=== PATIENT | male | born 1960 | race African-American/Black ===

== ENCOUNTER 2018-05-02 11:12 | Inpatient (IN) | payer MEDICARE, OTHER ==
[~2018-05-02] VITALS: Ht 180.3 cm; Wt 145.5 kg
--- NOTE | ~2018-05-02 | OP ---
PATIENT NAME: SHARATH YOUNG MEDICAL RECORD: [id number] :62 LOCATION:D.M2 D.2117 ADMISSION DATE:05/02/18 SURGEON: JUSTYN PROCTOR MD DATE OF OPERATION: 05/03/2018 PROCEDURE: Patient underwent left heart catheterization, LV gram and coronary angiogram. INDICATIONS: Unstable angina. PROCEDURE IN DETAIL: The patient was brought to cardiac catheterization lab in stable condition. Both groins were sterilely prepped and draped. Patient had a 6-Maltese sheath placed into the right radial artery using modified Seldinger technique. We then were able to selectively engage the left coronary artery, the right coronary artery, and the left ventricular cavity respectively for selective complete left heart catheterization. FINDINGS: 1. Left main is a short vessel with mild plaquing. 2. The LAD has diffuse atherosclerotic changes with a 60% to 70% proximal and a 70% to 80% mid stenosis and a large vessel. First diagonal has a stent. The stent has about a 50% to 60% in-stent restenosis. 3. The right coronary artery is a large, dominant vessel with very serpiginous arteries and a mid 90% stenosis. The posterolateral vessel is a small vessel with a mid 80% stenosis. HEMODYNAMICS: Left ventricular ejection fraction is 65%. There is mild elevations end-diastolic pressure at 25-30 mmHg. There is no significant mitral regurgitation. There is no gradient across the aortic valve. IMPRESSION: Multivessel coronary artery disease in a diabetic patient with preserved LV systolic function. RECOMMENDATIONS: I would consider a consultation for coronary artery bypass grafting versus stenting of the RCA and possibly stenting of the LAD. TRANSINT:[id number] Voice Confirmation ID: [id number] DOCUMENT ID: [id number] JUSTYN PROCTOR MD at 0743 CC: [id number] DICTATION DATE: 05/03/18 1308 MARINE ARCHITECT: 05/03/18 1550 ADM IN [place] [id number] [place] [address]
--- NOTE | ~2018-05-02 | TEE ---
PATIENT:SHARATH YOUNG MEDICAL RECORD: [id number] LOCATION:[place] [address] AGE OF PATIENT: 57 ADMISSION DATE: 05/04/18 SEX: M REFERRING PHYSICIAN: INTERPRETING PHYSICIAN: REYNALDO NOVAK MD TRANSESOPHAGEAL ECHOCARDIOGRAM Date: 05/05/18 ANTONIO CHARGE Y INDICATIONS: CABG PREMEDICATIONS: PATIENT'S RESPONSE PROCEDURE DOPPLER MEASUREMENTS: LVIT LA PA 80.0 RA LVOT 106 RVOT 60.0 Asc. Ao 128 AV Gradient Peak 6.6 AV Mean 3.2 AV Area 2.5 MV Gradient Peak 4.6 MV Mean 1.3 MV Area INTERPRETATION: Doppler: 2-D: COLOR FLOW DOPPLER NORMAL SALINE STUDY: MISCELLANOUS: DIAGNOSIS: PLAN: Joiner:Loli Uribe Earrings Fabricator: Conrado BROWN COMMENTS: DATE OF SERVICE: 05/06/2018 PROCEDURE: Transesophageal echo evaluation of valvular structures during bypass surgery. FINDINGS: 1. Left ventricular chamber size is within normal limits. Left ventricular systolic function is normal. Overall ejection fraction estimated at 60%. 2. Left atrium, right atrium, and right ventricle chamber sizes are within TRANSESOPHAGEAL ECHOCARDIOGRAM REPORT [id number] AJAY YOUNG normal limits. 3. Valvular structures have normal structure and motion. 4. Doppler interrogation reveals mild tricuspid regurgitation, mild mitral regurgitation, no other valvular insufficiency or stenosis. 5. No evidence of pericardial effusion or left ventricular thrombus. TRANSINT:[id number] Voice Confirmation ID: [id number] DOCUMENT ID: [id number] at 1713 CC: [id number] DICTATION DATE: 05/06/18 1157 WOOD PREPARATION SUPERVISOR: 05/06/18 1202 [place] [address]
--- NOTE | ~2018-05-02 | ST ---
PATIENT:SHARATH YOUNG MEDICAL RECORD: [id number] SEX: M LOCATION:D. D.211 ORDER #: ADMISSION DATE: 05/02/18 AGE OF PATIENT: 57 REFERRING PHYSICIAN: INTERPRETING PHYSICIAN: JUSTYN PROCTOR MD DATE OF SERVICE: 05/03/2018 The patient underwent a Lexiscan stress test. He had imaging at rest and stress done on the same day with 11.2 mCi sestamibi injected at rest and 29.8 mCi sestamibi injected at stress. The patient had no difficulty through the Lexiscan portion and we had reasonable imaging. He had no chest pain or shortness of breath. Gated imaging showed an ejection fraction of 45% to 50%. Overall reasonable wall motion throughout all segments. SPECT imaging showed no evidence of significant ischemia. There was an inferior attenuation artifact, likely liver attenuation artifact, although area of ischemic changes cannot be definitively ruled out because of the attenuation artifact. There does not appear to be a wall motion artifact to correspond to this, so unlikely they are ischemic changes. IMPRESSION: The patient has no significant areas of ischemia. He has inferior attenuation artifact. Ejection fraction is low normal. Depending on clinical situation and risk factor adjustment, symptom-directed therapies are very reasonable versus possible. Going further with angiography depending on clinical scenario. TRANSINT:[id number] Voice Confirmation ID: [id number] DOCUMENT ID: [id number] JUSTYN PROCTOR MD at 0743 CC: [id number] DICTATION DATE: 05/03/18 1111 DRAFTER DETAIL: 05/03/18 1902 ADM IN [place] [id number] [place] [address]
--- NOTE | ~2018-05-02 | EC ---
PATIENT:SHARATH YOUNG DATE OF SERVICE: 05/02/18 SEX: M MEDICAL RECORD: [id number] DATE OF : 62 LOCATION:D.M2 D.211 AGE OF PATIENT: 57 ADMISSION DATE: 05/04/18 REFERRING PHYSICIAN: INTERPRETING PHYSICIAN: JUSTYN PROCTOR MD ECHOCARDIOGRAM REPORT ECHO CHARGES 4 ECHO COMPLETE Date: 05/03 CLINICAL DIAGNOSIS: CP ECHOCARDIOGRAPHIC MEASUREMENTS (adult normal given) AC root (d.<3.7cm) 3.4 cm LV Septum d (<1.2 cm> 1.6 cm Valve Excursion 2.4 cm LV Septum (systole) 2.2 cm Left Atria (s.<4.0cm> 3.0 cm LVPW d(<1.2cm) 1.5 cm RV (d.<2.3cm) 2.7 cm LVPW (sytole) 2.5 cm LV diastole(<5.6CM) 6.3 cm MV E-F(>70mm/sec) cm LV systole 4.2 cm LVOT Diameter 2.2 cm MV exc.(>10mm) cm Est.ejection fraction (50-75%) % DOPPLER: LVIT cm/sec A 82.0 cm/sec E 61.0 cm/sec LA cm/sec RVSP 20.1 mmHg LVOT 106 cm/sec AOP1/2T m/s Asc. Ao 128 cm/sec RVOT 60.0 cm/sec RA cm/sec PA 80.0 cm/sec AV Gradient Peak 6.6 mmHg AV Mean 3.2 mmHg AV Area 2.5 cm MV Gradient Peak 4.6 mmHg MV Mean 1.3 mmHg MV Area cm COMMENTS: Gin Feeder: Jason DYEOE 911 Telecommunicator: 4 Dr. Proctor TAPE# PACS Pericardial Effusion N DATE OF SERVICE: PROCEDURE: Transthoracic echocardiogram. FINDINGS: 1. Left ventricle shows evidence of moderate to severe concentric left ventricular hypertrophy. Inflow characteristics consistent with diastolic dysfunction. Ejection fraction is 55%. There is mild enlargement of the left ventricular end-diastolic diameter. 2. The left atrium is normal. ECHOCARDIOGRAM REPORT [id number] SHARATH YOUNG 3. The aortic valve is normal. 4. The mitral valve is normal. 5. The tricuspid valve is normal. 6. The pericardium is normal. 7. The right ventricle is normal. 8. The right atrium is normal. CONCLUSION: The patient has evidence of hypertensive heart disease, otherwise normal echocardiogram. TRANSINT:[id number] Voice Confirmation ID: [id number] DOCUMENT ID: [id number] JUSTYN PROCTOR MD at 1702 CC: [id number] DICTATION DATE: 05/04/18 0757 RUBBER GOODS ASSEMBLER: 05/04/18 1203 ADM IN [place] [address] [place] [address]
--- NOTE | ~2018-05-02 | MORECARE ---
CASE MANAGEMENT DISCHARGE SUMMARY PATIENT: GOVIND YOUNG UNIT: [id number] ADM DATE: 05/04/18 AGE: 57 : 62 SEX: M ROOM/BED: [facility] AUTHOR: CASE, GARNETT FEEDER PHYSICIAN: REFERRING PHYSICIAN: JUSTYN PROCTOR MD DATE OF SERVICE: 05/04/18 Discharge Plan Patient Name: GOVIND YOUNG [facility] [facility] 1960 Planned Disposition: Home Anticipated Discharge Date: Discharge Date: Expected LOS: Initial Reviewer: [email or web address] Initial Review Date: 05/07/2018 Generated: 05/07/18 10:16 am Coverage Notice Reviewer: [email or web address] Kike Garcia Notice Issued Date-Time: 05/02/2018 19:44 Notice Type: Medicare Outpatient Observation Notice Notice Delivered To: Patient Relationship to Patient: Self Platen Press Operator Apprentice Name: Govind Young Delivery Method: - Jordyn Days: Prior Verbal Notification: Recipient Understood Notice: Recipient Signature: Med Rec Note Co-signed by Attending: Coverage Notice Comment: Patient Name: GOVIND YOUNG Page [id number] All edits/amendments must be made on the electronic document DICTATION DATE: 05/07/18915 CIVIL RIGHTS INVESTIGATOR: 05/07/18915 RPT#: [id number] DC DATE: STATUS: ADM IN [facility] [address] [place] [address] END OF REPORT
--- NOTE | ~2018-05-02 | OP ---
PATIENT NAME: SHARATH STONE MEDICAL RECORD: [id number] :62 LOCATION:[facility] D.CV07 ADMISSION DATE:05/04/18 SURGEON: ZACHARY AVALOS MD DATE OF OPERATION: 05/05/2018 SURGEON: Zachary Avalos MD ANESTHESIA: General endotracheal, Dr. Mcpherson. OPERATION PERFORMED: Coronary artery bypass. 1. Left internal thoracic, left anterior descending. 2. Reverse saphenous vein graft to the first diagonal coronary artery. 3. Reverse saphenous vein graft to the right coronary artery. PREOPERATIVE DIAGNOSES: Unstable angina and intermediate coronary syndrome. POSTOPERATIVE DIAGNOSES: Unstable angina and intermediate coronary syndrome. INDICATION FOR OPERATION: Unstable angina. FINDINGS OF THE OPERATION: The left internal thoracic and greater saphenous vein from the right thigh were good for conduits. The target vessels were of good caliber and quality. ESTIMATED BLOOD LOSS: Cell Saver was used. DESCRIPTION OF PROCEDURE: After informed consent and adequate preoperative medication and evaluation, the patient was brought to the operating room, placed on the table in the supine position. After induction of general endotracheal anesthesia and application of appropriate monitoring devices, chest, neck, abdomen, and both legs were prepped and draped in sterile field. Utilizing Betadine scrub, alcohol, and Betadine solution, Betadine-impregnated drape was also used. Saphenous vein was harvested from right thigh and lower leg and prepared for reverse saphenous vein grafting. Leg was closed over drains utilizing 3-0 Vicryl and skin donita. A median sternotomy incision was used and dissection carried down to the fascia. Hemostasis was maintained with electrocautery. Sternum was divided. Innominate vein was identified and protected. The left internal thoracic was taken down and prepared for grafting. The patient was given a calculated dose of heparin, cannulated in standard fashion utilizing one aortic and one 2-stage cannula in the atrium and inferior vena cava. The patient was placed on cardiopulmonary bypass, cooled to 32 degrees centigrade. A cross clamp was placed just proximal to the aortic cannula. The patient was given cardioplegic solution through the aortic root. The patient was given a cold induction and cold maintenance. The patient was given cold intermittent cardioplegic solution throughout the procedure through the root, the grafts or a combination of both. The first vessel to be grafted was the right coronary artery, it was grafted end-to-side utilizing a running 7-0 Prolene suture. Graft was measured back to the aorta and a proximal anastomosis fashioned utilizing running 6-0 Prolene suture. Next, first diagonal was grafted end-to-side utilizing a running 7-0 Prolene suture. Graft was measured back to the aorta and a proximal anastomosis fashioned utilizing running 6-0 Prolene suture. Next, left internal thoracic was brought up to the hole in pericardium, sutured to left anterior descending end-to-side utilizing a running 8-0 Prolene suture. Pedicle was attached to epicardium with 6-0 Prolene suture. All maneuvers to remove trapped air were performed. The patient was OPERATIVE REPORT [id number] SHARATH STONE given warm cardioplegic reperfusion and controlled reperfusion. The patient was rewarmed to 37 degrees centigrade. Two atrial and 2 ventricular pacing wires were placed in the heart and brought out through the epigastric area. The patient was weaned from cardiopulmonary bypass. After being stable off bypass, he was given calculated dose of protamine to reverse the heparin. Hemostasis was achieved. A #40 right angle and #36 chest tubes were brought in through the epigastric area and placed in mediastinum. A separate left pleural Victorino tube was connected to a suction bulb. The chest was again irrigated. Instrument count and sponge count were correct times 2. Chest closed in layers utilizing #7 wire on the sternum, #2 Vicryl on linea alba and pectoralis fascia. Subcutaneous tissue was approximated with 3-0 Vicryl and skin approximated with 3-0 subcuticular Vicryl. Sterile dressings were applied. The patient tolerated the procedure well and transferred to cardiovascular recovery in stable condition. TRANSINT:[id number] Voice Confirmation ID: [id number] DOCUMENT ID: [id number] ZACHARY AVALOS MD at 1235 CC: [id number] DICTATION DATE: 05/05/18 1453 CRUSHER TENDER: 05/05/18 1525 DIS IN 05/14/[address] [address]
--- NOTE | ~2018-05-02 | HEMODYNAMI ---
PATIENT:SHARATH YOUNG MEDICAL RECORD: [id number] : 62 [facility] DATE: 05/02/18 Generatedon:05/03/201813:15 Patient name: SHARATH YOUNG Patient #: [id number] SSN: D OB: 1960 Date of study: 05/03/2018 Page: Of Hemodynamic Procedure Report Patient Data Patient Demographics Procedure consent was obtained First Name: SHARATH Gender: Male Last Name: HANNAH : 1960 Patient #: [id number] Age: 57 year(s) Race: Black Additional ID: [id number] Contact details [address]: [address] [place] [address] State: [place] City: [place] Zip code: [address] Past Medical History Allergies Allergen Reaction Date Comments Reported Other allergy 05/03/2018 codeine Admission Admission Data Admission Date: 05/02/2018 Admission Time: 13:19 Room #: 2117 Procedure Procedure Types Cath Procedure Diagnostic Procedure LHC LH w/Coronaries Sedation Charges Moderate Sedation up to 15 minutes Procedure Description Procedure Date Procedure Date: 05/03/2018 Procedure Start Time: 12:46 Procedure End Time: 13:15 Procedure Staff Name Function Fabián Proctor MD Performing Physician Ilda Peacock RT Monitor Rk Draper RN Nurse Yoandy Childs RT Scrub Procedure Data Cath Procedure Fluoroscopy Diagnostic fluoroscopy Total fluoroscopy Time: 3.9 time: 3.9 min min Diagnostic fluoroscopy Total fluoroscopy dose: dose: 1410 mGy 1410 mGy Contrast Material Contrast Material Type Amount (ml) Isovue 370 70 Entry Location Entry Primary Successful Side Size Upsize Upsize Entry Closure Barnes ccessful Closure Location (Fr) 1 (Fr) 2 (Fr) Remarks Device Remarks Radial Right 6 Fr Mechanical artery Short Compression Estimated blood loss: 5 ml Diagnostic catheters Device Type Used For End Catheter Placement DIAGNOSTIC Munir 110cm Left Coronary 5Fr catheter ([id number]) Angiography DIAGNOSTIC Munir 110cm LV Angiography 5Fr catheter ([id number]) DIAGNOSTIC Munir 110cm Right Coronary 5Fr catheter ([id number]) Angiography Procedure Complications No complications Procedure Medications Medication Administration Route Dosage Oxygen etCO2 Nasal cannula 2 l/min Lidocaine 2% added to field 20 Heparin Flush Bag added to field 2 bags (1000units/500ml NS) 0.9% NaCl I.V. 100 ml/hr Radial Cocktail I.A. 1 syringe (Verapomil 2mg/Nitro 400mcg/Heparin 1500units) Versed I.V. 1 mg Fentanyl I.V. 50 mcg Versed I.V. 1 mg Fentanyl I.V. 50 mcg Lopressor I.V. 5 mg unlisted medication 1 Hemodynamics Rest Heart Rate: 67 (bpm) Pressure Samples Time Site Value (mmHg) Purpose Heart Use Rate(bpm) 12:55 LV 166/27,28 EDP 69 12:57 LV 184/18,28 EDP 66 12:57 LV 184/21,37 Snapshot 56 12:58 AO 174/110(139) Snapshot 70 Gradients Valve Time Site Site Mean SEP/DFP Peak To Heart Use 1 2 (mmHg) (sec/min) Peak Rate (mmHg) (bpm) Aortic 12:57 LV AO 74 Snapshots Pre Cath Intra NCS Post Cath Vital Signs Time Heart Resp SPO2 etCO2 NIBP (mmHg) Rhythm Pain Sedation Rate (ipm) (%) (mmHg) Status Level (bpm) 12:39:06 69 19 100 34.5 Measuring NSR 0 (11) 10(A) , No pain 12:41:11 67 17 97 36 Time NSR 0 (11) 10(A) Exceeded , No pain 12:45:04 66 16 96 34.6 No Cuff NSR 0 (11) 10(A) , No pain 12:48:00 61 14 99 34.5 191/106(160) NSR 0 (11) 10(A) , No pain 12:52:55 69 15 95 37.6 171/101(130) NSR 0 (11) 9(A) , No pain 12:58:35 67 16 97 36.8 176/100(146) NSR 0 (11) 10(A) , No pain 13:03:32 66 14 100 36 187/103(157) NSR 0 (11) 10(A) , No pain 13:08:31 62 17 100 34.5 198/107(162) NSR 0 (11) 10(A) , No pain 13:13:30 62 13 0 Measuring NSR 0 (11) 10(A) , No pain 13:13:37 62 12 0 201/107(147) NSR 0 (11) 10(A) , No pain Medications Time Medication Route Dose Verified Delivered Reason Notes Effectiveness by by 12:38:19 Oxygen etCO2 2 l/min Fabián Buffie used for Nasal Rony Draper RN procedure cannula 12:38:26 Lidocaine 2% added 20ml Fabián Fabián for local to vial Rony Proctor MD anesthetic field 12:38:33 Heparin Flush added 2 bags Fabián Fabián used for Bag to Rony Proctor MD procedure (1000units/500ml field FERGUSON NS) 12:38:41 0.9% NaCl I.V. 100 Fabián Buffie Per ml/hr Rony Draper RN physician MD 12:44:39 Versed I.V. 1 mg Fabián Buffie for sedation Rony Draper RN, MD 12:44:45 Fentanyl I.V. 50 mcg Fabián Buffie for sedation Rony Draper RN, MD 12:48:44 Radial Cocktail I.A. 1 Fabián Fabián for (Verapomil syringe Rony Proctor MD vasodilation 2mg/Nitro MD 400mcg/Heparin 1500units) 12:49:17 Versed I.V. 1 mg Fabián Buffie for sedation Rony Draper RN, MD 12:49:21 Fentanyl I.V. 50 mcg Fabián Buffie for sedation Rony Draper RN, MD 13:06:07 Lopressor I.V. 5 mg Fabián Buffie for Rony Draper RN hypertension 13:10:31 Nitroglycerin dermal 1 inch Fabián Buffie for ointment Rony Draper RN hypertension Procedure Log Time Note 12:18:50 Time tracking: Call back (After hours or weekends) 12:18:59 Plan of Care:Hemodynamics will remain stable., Cardiac rhythm will remain stable., Comfort level will be maintained., Respiratory function will remain adequate., Patient/ family verbilizes understanding of procedure., Procedure tolerated without complication., Recovers from procedure without complications.. 12:19:05 Ilda Counts RT(R) sent for patient. Start room use. 12:28:42 Patient received from Med II to CCL 1 Alert and oriented. Tansferred to table in Supine position. 12:28:43 Warm blankets applied, and jimi hugger turned on for patient comfort. 12::44 Correct patient and procedure confirmed by team. 12::45 Signed procedure consent form obtained from patient. 12::46 ECG and BP/O2 sat monitors applied to patient. 12::47 Pre-procedure instructions explained to patient. 12::47 Pre-op teaching completed and patient verbalized understanding. 12:28:49 Family in patients room. 12::51 Patient NPO since Breakfast. 12:29:03 Patient allergic to Other allergycodeine 12:37:57 Vital chart was started 12:38:02 Rhythm: sinus rhythm 12:38:03 Full Disclosure recording started 12:38:07 H&P Date Dictated: 05/03/2018 Within 30 days and on chart.. 12:38:16 Is the patient allergic to Iodine/contrast media? No. 12:38:17 Is patient on blood thinner?Yes 12:38:19 Oxygen 2 l/min etCO2 Nasal cannula was administered by Rk Draper RN; used for procedure; 12:38:19 ACC The patient was administered the following blood thiners within the last 24 hours: ACCPlavix 12:38:21 Patient diabetic? Yes. 12:38:22 If diabetic: On Metformin? Yes 12:38:26 Lidocaine 2% 20ml vial added to field was administered by Fabián Proctor MD; for local anesthetic; 12:38:26 If on Metformin: Last Dose? 05/01/2018 12:38:30 Previous problem with sedation/anesthesia? No ? 12:38:33 Heparin Flush Bag (1000units/500ml NS) 2 bags added to field was administered by Fabián Proctor MD; used for procedure; 12:38:33 Snore? Yes 12:38:33 Sleep apnea? Yes 12:38:35 Deviated septum? No 12:38:36 Opens mouth fully? Yes 12:38:36 Sticks out tongue? Yes 12:38:39 Airway obstruction? No ? 12:38:41 0.9% NaCl 100 ml/hr I.V. was administered by Rk Draper RN; Per physician; 12:38:41 Dentures? Yes OUT 12:38:45 Pre procedure: right dorsailis pedis pulse 2+ Normal; easily identifiable; not easily obliterated 12:38:58 Modified Carlos's test Ulnar < 7 seconds 12:39:06 Patient pain scale 0/10 ?. 12:39:33 IV patent on arrival in left hand with 0.9% NaCl at [facility]. 12:39:52 Lab results completed and on chart. 12:40:08 Right Radial & Right Groin area was prepped with chlora-prep and draped in sterile fashion 12:40:09 Alarms reviewed by R. N. 12:40:09 Sharps counted by scrub and verified by R.N. 12:40:14 Use device set Radial Dx or PCI 12:40:15 ACIST Syringe (69226) opened to sterile field. 12:40:15 Medline Cath Pack ([id number]) opened to sterile field. 12:40:16 Bag Decanter (2002S) opened to sterile field. 12:40:17 DIAGNOSTIC WIRE .035 260cm J wire (553170) opened to sterile field. 12:40:17 ACIST Hand Control (18309) opened to sterile field. 12:40:18 ACIST Manifold (91101) opened to sterile field. 12:40:18 Tegaderm 4 x 4 (1626W) opened to sterile field. 12:40:19 MBrace Wrist Support ([id number]) opened to sterile field. 12:40:21 SHEATH 6Fr Prelude Radial ([id number]) opened to sterile field. 12:41:33 Final Timeout: patient, procedure, and site verified with staff and physician. All members of the team are in agreement. 12:41:37 Right Radial site verified by team. 12:41:40 Physical assessment completed. ASA score P 2 - A patient with mild systemic disease as per Fabián Proctor MD. 12:41:44 Sedation plan: IV Moderate Sedation Medication:Versed, Fentanyl 12:43:22 Baseline sample Acquired. 12:44:39 Versed 1 mg I.V. was administered by Rk Draper RN; for sedation; 12:44:45 Fentanyl 50 mcg I.V. was administered by Rk Draper RN; for sedation; 12:45:15 Procedure started. 12:46:25 Local anesthetic to right radial artery with Lidocaine 2% by Fabián Proctor MD.INITIAL ACCESS ONLY 12:47:44 A 6 Fr Short sheath was inserted into the Right Radial artery 12:48:14 Zero performed for pressure channel P1 12:48:44 Radial Cocktail (Verapomil 2mg/Nitro 400mcg/Heparin 1500units) 1 syringe I.A. was administered by Fabián Proctor MD; for vasodilation; 12:48:54 A DIAGNOSTIC Munir 110cm 5Fr catheter (230316) was advanced over the wire and used for Left Coronary Angiography. 12:49:17 Versed 1 mg I.V. was administered by Rk Draper RN; for sedation; 12:49:21 Fentanyl 50 mcg I.V. was administered by Rk Draper RN; for sedation; 12:55:23 A DIAGNOSTIC Munir 110cm 5Fr catheter (166545) was advanced over the wire and used for LV Angiography. 12:56:43 GLIDE WIRE ANGLE 260cm (FY6135) opened to sterile field. 12:56:49 glide wire advanced. 12:57:34 LV gram done using DIANA 12:57:36 LV hemodynamics recorded. 12:57:38 Injector settings: Ml/sec: 12, Volume: 8, 12:58:01 EF : 60 % 12:58:34 A DIAGNOSTIC Munir 110cm 5Fr catheter (799862) was advanced over the wire and used for Right Coronary Angiography. 13:00:42 Catheter removed. 13:00:58 Sheath removed intact; hemostasis achieved with Mechanical Compression to the Right Radial artery. 13:01:08 Procedure ended.(Physican Out) 13:01:21 Fluoroscopy time 03.90 minutes. 13:01:26 Fluoroscopy dose: 1410 mGy 13:01:26 Flurop Dose total: 1410 13:01:32 Contrast amount:Isovue 370 70ml. 13:02:44 Sharps counted by scrub and verified by R.N. 13:02:47 Insertion/operative site no bleeding no hematoma. 13:02:53 TR band inflated with 12cc of air. 13:03:05 Post right radial artery:stable, clean and dry 13:03:07 Post Procedure Pulses reassessed and unchanged 13:03:10 Post-procedure physical assessment completed. ASA score P 2 - A patient with mild systemic disease as per Fabián Proctor MD. 13:03:13 Post procedure rhythm: unchanged. 13:03:21 Estimated blood loss: 5 ml 13:03:22 Post procedure instruction explained to patient.Patient verbalizes understanding. 13:03:23 Patient needs reinforcement of post procedure teaching. 13:04:24 Procedure type changed to Cath procedure, Diagnostic procedure, LHC, LHC w/Coronaries, Sedation Charges, Moderate Sedation up to 15 minutes 13:04:30 Procedure Complication : No complications 13:04:32 See physician's report for complete and final results. 13:04:41 TR BAND Large ([id number]) opened to sterile field. 13:06:[address] SPOKE TO DR JESSICA FOR CABG CONSULT. 13:06:07 Lopressor 5 mg I.V. was administered by Rk Draper RN; for hypertension; 13:06:16 Procedure and supply charges have been captured, reviewed, submitted and are correct. 13:10:31 Nitroglycerin ointment 1 inch dermal was administered by Rk Draper RN; for hypertension; 13:15:18 Vital chart was stopped 13:15:23 Report given to PCU. 13:15:27 Patient transfered to PCU with Bed. 13:15:34 Procedure ended. 13:15:34 Full Disclosure recording stopped 13:15:40 End room use (Document Last) Device Usage Item Name Manufacture Quantity Catalog Number Hospital Part Current M inimal Lot# / Charge Number Stock Stock Serial# Code ACIST Syringe Acist 1 85124 137706 322011 851329 2 0 (21745) [employer] Medline Cath Cardinal 1 [id number] 595736 38360 475844 5 [facility] ([id number]) Bag Decanter Microtek 1 983255 36904 768817 5 () [employer] Inc. DIAGNOSTIC WIRE St Calvin 1 062697 639866 454249 727117 3 0 .035 260cm J wire (291279) ACIST Hand Acist 1 99993 804458 098601 849691 5 Control (37364) [employer] Inc ACIST Manifold Acist 1 60141 990873 557830 882076 5 (78698) [employer] Inc Tegaderm 4 x 4 3M 1 1626W 250186 784996 760015 5 (1626W) MBrace Wrist Advanced 1 140-0250-00 931155 38759 199133 5 Support Vascular ([id number]) Dynamics SHEATH 6Fr Merit 1 [id number] 260155 861930 864030 5 Prelude Radial Medical ([id number]) DIAGNOSTIC Terumo 1 40-6828 330856 487067 901909 5 Munir 110cm 5Fr catheter (706617) GLIDE WIRE Terumo 1 OP2733 809331 351851 237327 5 ANGLE 260cm (CM8292) TR BAND Large Terumo 1 [id number] 555434 139255 049305 4 0 ([id number]) Signature Audit [employer] Time Signature Unsigned Intra-Procedure 05/03/2018 Ilda 1:15:52 PM Counts RT(R) Signatures Monitor : Ilda Signature : Counts RT Date : Time : [address] [address]
[2018-05-02] MEDS ORDERED: HYDROCHLOROTHIA25 MG PO (11:24)
[2018-05-02] MEDS ORDERED: GLUCOPHAGE1000 MG PO (11:24)
[2018-05-02] MEDS ORDERED: ZOCOR40 MG PO (11:24)
[2018-05-02] MEDS ORDERED: NIFEDIPINE ER90 MG PO (11:25)
[2018-05-02] MEDS ORDERED: LOPRESSOR25 MG PO (11:26)
[2018-05-02] MEDS ORDERED: COZAAR100 MG PO (11:26)
[2018-05-02] MEDS ORDERED: CATAPRES0.1 MG PO (11:26)
[2018-05-02] MEDS ORDERED: NAPROSYN500 MG PO (11:26)
[2018-05-02 11:31] VITALS: BP 205/102
[2018-05-02 11:58] LABS: BASOPHILS 0.2 % (0-2); EOSINOPHILS 1.1 % (0-7); HEMATOCRIT 42.9 % (42.0-54.0); HEMOGLOBIN 14.2 g/dL (13.5-17.5); IMMATURE GRANULOCYTES 0.2 % (0-5); LYMPHOCYTES 24.7 % (15-50); MCH 27.2 pg (26.0-34.0); MCHC 33.1 g/dL (31.0-37.0); MONOCYTES 3.3 % (2-11); NEUTROPHILS 70.5 % (40-80); PLATELET COUNT 209 10x3/uL (130-400); RBC 5.23 10x6/uL (4.20-6.10); RDW 14.3 % (11.5-14.5); WBC 4.5 10x3/uL (4.8-10.8)
[2018-05-02 12:01] VITALS: BP 193/94
[2018-05-02 12:13] LABS: ALBUMIN 3.6 g/dL (3.4-5.0); ALKALINE PHOSPHATASE 68 U/L (46-116); ALT (SGPT) 26 U/L (10-68); BILIRUBIN - TOTAL 0.45 mg/dL (0.2-1.3); CALC OSMOLALITY 280 mosm/kg (275-300); CALCIUM 8.5 mg/dL (8.5-10.1); CARBON DIOXIDE 20.8 mmol/L (21.0-32.0); CHLORIDE - SERUM 99 mmol/L (98-107); CREATININE - SERUM 1.7 mg/dL (0.6-1.3); GLUCOSE 290 mg/dL (74-106); POTASSIUM - SERUM 4.1 mmol/L (3.5-5.1); PROTEIN - SERUM 7.9 g/dL (6.4-8.2); SODIUM 133 mmol/L (136-145); UREA NITROGEN 25 mg/dL (7-18); eGFR NON AFRICAN AMERICAN 44 mL/min (90-120)
[2018-05-02 12:24] LABS: CKMB 6.5 U/L (0.0-3.6); PRO BNP 239 pg/mL (0-125); TROPONIN-I 0.028 ng/mL (0.000-0.060)
[2018-05-02 12:25] LABS: CREATINE KINASE 895 UL (21-232)
[2018-05-02 12:45] VITALS: BP 134/77
[2018-05-02 15:11] VITALS: BP 144/89; BMI 43.3
[2018-05-02 18:51] LABS: CKMB 5.1 U/L (0.0-3.6)
[2018-05-02 19:07] LABS: CREATINE KINASE 615 UL (21-232); TROPONIN-I < 0.017 ng/mL (0.000-0.060)
[2018-05-02 20:00] VITALS: BP 146/77
[2018-05-03 01:54] LABS: CKMB 4.4 U/L (0.0-3.6); CREATINE KINASE 541 UL (21-232); TROPONIN-I < 0.017 ng/mL (0.000-0.060)
[2018-05-03 04:00] VITALS: BP 162/74
[2018-05-03 08:05] VITALS: BP 141/73
[2018-05-03 12:08] LABS: BASOPHILS 0.1 % (0-2); EOSINOPHILS 0.6 % (0-7); HEMATOCRIT 38.3 % (42.0-54.0); HEMOGLOBIN 12.9 g/dL (13.5-17.5); IMMATURE GRANULOCYTES 0.1 % (0-5); LYMPHOCYTES 34.1 % (15-50); MCHC 33.7 g/dL (31.0-37.0); MCV 80.3 fL (80.0-100.0); MEAN PLATELET VOLUME 9.6 fL (7.4-10.4); MONOCYTES 9.9 % (2-11); NEUTROPHILS 55.2 % (40-80); PLATELET COUNT 245 10x3/uL (130-400); RBC 4.77 10x6/uL (4.20-6.10); RDW 14.2 % (11.5-14.5); WBC 6.9 10x3/uL (4.8-10.8)
[2018-05-03 12:15] LABS: ANION GAP 9.6 mmol/L (8-16); CALCIUM 8.5 mg/dL (8.5-10.1); CREATININE - SERUM 1.8 mg/dL (0.6-1.3); POTASSIUM - SERUM 3.8 mmol/L (3.5-5.1)
[2018-05-03 12:19] LABS: CARBON DIOXIDE 29.2 mmol/L (21.0-32.0)
[2018-05-03 15:14] VITALS: BP 154/101
[2018-05-03 20:30] VITALS: BP 128/85
[2018-05-04] VITALS (7 sets, daily range): BP systolic 122–197; BP diastolic 63–115
[2018-05-04 12:15] LABS: BASOPHILS 0.1 % (0-2); EOSINOPHILS 2.2 % (0-7); HEMATOCRIT 36.7 % (42.0-54.0); HEMOGLOBIN 12.1 g/dL (13.5-17.5); IMMATURE GRANULOCYTES 0.1 % (0-5); LYMPHOCYTES 29.8 % (15-50); MCH 26.5 pg (26.0-34.0); MCV 80.5 fL (80.0-100.0); MEAN PLATELET VOLUME 9.9 fL (7.4-10.4); MONOCYTES 6.7 % (2-11); NEUTROPHILS 61.1 % (40-80); PLATELET COUNT 238 10x3/uL (130-400); RBC 4.56 10x6/uL (4.20-6.10); RDW 14.3 % (11.5-14.5); WBC 7.4 10x3/uL (4.8-10.8)
[2018-05-04 12:45] LABS: ALBUMIN 3.1 g/dL (3.4-5.0); ANION GAP 8.1 mmol/L (8-16); BILIRUBIN - TOTAL 0.3 mg/dL (0.2-1.3); CALCIUM 8.7 mg/dL (8.5-10.1); CARBON DIOXIDE 27.5 mmol/L (21.0-32.0); CREATININE - SERUM 1.7 mg/dL (0.6-1.3); PHOSPHOROUS 3.7 mg/dL (2.5-4.9); POTASSIUM - SERUM 3.6 mmol/L (3.5-5.1); T4 THYROXIN - FREE 1.14 ng/dL (0.76-1.46); THYROID STIMULATING HORMONE 2.92 uIU/mL (0.36-3.74); URIC ACID 6.5 mg/dL (2.6-7.2)
[2018-05-04 12:57] LABS: PROTIME 12.1 SECONDS (11.6-15.0)
[2018-05-04 12:58] LABS: APTT 26.1 SECONDS (22.8-39.4); INR 0.95 (0.85-1.17)
[2018-05-04 15:24] LABS: APPEARANCE CLEAR (CLEAR); BACTERIA FEW /hpf (NONE SEEN); BILIRUBIN NEGATIVE (NEGATIVE); COLOR STRAW (YELLOW); EPITHELIAL CELLS 0-5 /hpf (0-5); GLUCOSE 1000 mg/dL (NEGATIVE); KETONE NEGATIVE (NEGATIVE); NITRITE NEGATIVE (NEGATIVE); PROTEIN 2+ mg/dL (NEGATIVE); RED CELLS - URINE 0-5 /hpf (0-5); UROBILINOGEN NORMAL (NORMAL); WHITE CELLS - URINE 0-5 /hpf (0-5)
[2018-05-05] VITALS (37 sets, daily range): BP systolic 100–140; BP diastolic 51–76; BMI 44.0
[2018-05-05 08:15] LABS: PLT FUNCT.(P2Y12) PLAVIX 264 PRU (194-418)
[2018-05-05 14:30] LABS: HEMATOCRIT 30.4 % (42.0-54.0); HEMOGLOBIN 10.3 g/dL (13.5-17.5); MCH 27.1 pg (26.0-34.0); MCHC 33.9 g/dL (31.0-37.0); MEAN PLATELET VOLUME 9.7 fL (7.4-10.4); RBC 3.8 10x6/uL (4.20-6.10); RDW 14.4 % (11.5-14.5)
[2018-05-05 14:39] LABS: ANION GAP 9.7 mmol/L (8-16); CALCIUM 7.6 mg/dL (8.5-10.1); CARBON DIOXIDE 25.7 mmol/L (21.0-32.0); CREATININE - SERUM 1.6 mg/dL (0.6-1.3); POTASSIUM - SERUM 3.4 mmol/L (3.5-5.1)
[2018-05-05 14:51] LABS: APTT 35.7 SECONDS (22.8-39.4); INR 1.24 (0.85-1.17); PROTIME 15.1 SECONDS (11.6-15.0)
[2018-05-06] VITALS (55 sets, daily range): BP systolic 93–134; BP diastolic 42–78
[2018-05-06 05:38] LABS: HEMATOCRIT 29.5 % (42.0-54.0); HEMOGLOBIN 9.8 g/dL (13.5-17.5); MCH 26.8 pg (26.0-34.0); MCHC 33.2 g/dL (31.0-37.0); MCV 80.6 fL (80.0-100.0); MEAN PLATELET VOLUME 9.7 fL (7.4-10.4); RBC 3.66 10x6/uL (4.20-6.10); RDW 14.9 % (11.5-14.5)
[2018-05-06 05:54] LABS: ALBUMIN 2.4 g/dL (3.4-5.0); BILIRUBIN - TOTAL 0.36 mg/dL (0.2-1.3); CALCIUM 7.5 mg/dL (8.5-10.1); CARBON DIOXIDE 24.9 mmol/L (21.0-32.0); PROTEIN - SERUM 5.4 g/dL (6.4-8.2)
[2018-05-06 06:01] LABS: ANION GAP 11.8 mmol/L (8-16); CREATININE - SERUM 2.1 mg/dL (0.6-1.3); POTASSIUM - SERUM 4.7 mmol/L (3.5-5.1)
[2018-05-06 13:21] LABS: HEPATITIS C ANTIBODY 0.2 (0.0-0.9)
[2018-05-07] VITALS (26 sets, daily range): BP systolic 108–147; BP diastolic 54–78; Ht 180.3 cm; Wt 145.5 kg
[2018-05-07 06:12] LABS: HEMATOCRIT 25.4 % (42.0-54.0); HEMOGLOBIN 8.3 g/dL (13.5-17.5); MCH 26.8 pg (26.0-34.0); MCHC 32.7 g/dL (31.0-37.0); MCV 81.9 fL (80.0-100.0); RBC 3.1 10x6/uL (4.20-6.10); RDW 15.3 % (11.5-14.5); WBC 11.4 10x3/uL (4.8-10.8)
[2018-05-07 06:57] LABS: ALBUMIN 2.1 g/dL (3.4-5.0); ANION GAP 12.1 mmol/L (8-16); BILIRUBIN - TOTAL 0.38 mg/dL (0.2-1.3); CALCIUM 7.3 mg/dL (8.5-10.1); CARBON DIOXIDE 25.7 mmol/L (21.0-32.0); POTASSIUM - SERUM 4.8 mmol/L (3.5-5.1); PROTEIN - SERUM 5.8 g/dL (6.4-8.2)
[2018-05-07 07:09] LABS: CREATININE - SERUM 3.6 mg/dL (0.6-1.3)
[2018-05-07 19:51] LABS: APPEARANCE CLEAR (CLEAR); BILIRUBIN NEGATIVE (NEGATIVE); COLOR YELLOW (YELLOW); GLUCOSE 100 mg/dL (NEGATIVE); KETONE NEGATIVE (NEGATIVE); NITRITE NEGATIVE (NEGATIVE); PROTEIN 2+ mg/dL (NEGATIVE); SPECIFIC GRAVITY 1.025 (1.005-1.020); UROBILINOGEN NORMAL (NORMAL)
[2018-05-07 19:53] LABS: BACTERIA MANY /hpf (NONE SEEN); EPITHELIAL CELLS 0-5 /hpf (0-5); RED CELLS - URINE 0-5 /hpf (0-5); WHITE CELLS - URINE 0-5 /hpf (0-5)
[2018-05-08] VITALS (24 sets, daily range): BP systolic 120–165; BP diastolic 64–84
[2018-05-08 05:27] LABS: HEMATOCRIT 21.9 % (42.0-54.0); MCH 26.6 pg (26.0-34.0); MCHC 32.9 g/dL (31.0-37.0); MCV 80.8 fL (80.0-100.0); MEAN PLATELET VOLUME 9.9 fL (7.4-10.4); RBC 2.71 10x6/uL (4.20-6.10); RDW 15.1 % (11.5-14.5); WBC 10.2 10x3/uL (4.8-10.8)
[2018-05-08 05:28] LABS: HEMOGLOBIN 7.2 g/dL (13.5-17.5)
[2018-05-08 05:38] LABS: BILIRUBIN - TOTAL 0.29 mg/dL (0.2-1.3); CALCIUM 7.2 mg/dL (8.5-10.1); CARBON DIOXIDE 26.3 mmol/L (21.0-32.0); CREATININE - SERUM 3.5 mg/dL (0.6-1.3); PROTEIN - SERUM 5.9 g/dL (6.4-8.2)
[2018-05-08 05:43] LABS: ANION GAP 12.7 mmol/L (8-16)
[2018-05-09] VITALS (24 sets, daily range): BP systolic 116–156; BP diastolic 47–80
[2018-05-09 06:00] LABS: MCH 27.1 pg (26.0-34.0); MCV 82.1 fL (80.0-100.0); MEAN PLATELET VOLUME 9.5 fL (7.4-10.4); RDW 14.9 % (11.5-14.5); WBC 10.1 10x3/uL (4.8-10.8)
[2018-05-09 06:09] LABS: HEMOGLOBIN 8.9 g/dL (13.5-17.5); RBC 3.29 10x6/uL (4.20-6.10)
[2018-05-09 06:32] LABS: ANION GAP 12.6 mmol/L (8-16); BILIRUBIN - TOTAL 0.42 mg/dL (0.2-1.3); CALCIUM 7.5 mg/dL (8.5-10.1); CARBON DIOXIDE 26.5 mmol/L (21.0-32.0); POTASSIUM - SERUM 4.1 mmol/L (3.5-5.1); PROTEIN - SERUM 6.2 g/dL (6.4-8.2)
[2018-05-09 06:36] LABS: CREATININE - SERUM 2.4 mg/dL (0.6-1.3)
[2018-05-10] VITALS (24 sets, daily range): BP systolic 117–155; BP diastolic 67–83
[2018-05-10 05:35] LABS: HEMATOCRIT 27.7 % (42.0-54.0); HEMOGLOBIN 9.1 g/dL (13.5-17.5); MCHC 32.9 g/dL (31.0-37.0); MCV 82.2 fL (80.0-100.0); MEAN PLATELET VOLUME 9.6 fL (7.4-10.4); RBC 3.37 10x6/uL (4.20-6.10); RDW 14.7 % (11.5-14.5)
[2018-05-10 05:56] LABS: ANION GAP 10.7 mmol/L (8-16); BILIRUBIN - TOTAL 0.39 mg/dL (0.2-1.3); CALCIUM 7.6 mg/dL (8.5-10.1); CARBON DIOXIDE 26.3 mmol/L (21.0-32.0); CREATININE - SERUM 2.2 mg/dL (0.6-1.3); PROTEIN - SERUM 6.4 g/dL (6.4-8.2)
[2018-05-11] VITALS (26 sets, daily range): BP systolic 121–168; BP diastolic 65–91
[2018-05-11 06:45] LABS: ANION GAP 13.1 mmol/L (8-16); BILIRUBIN - TOTAL 0.48 mg/dL (0.2-1.3); CALCIUM 7.9 mg/dL (8.5-10.1); CARBON DIOXIDE 24.5 mmol/L (21.0-32.0); CREATININE - SERUM 1.8 mg/dL (0.6-1.3); POTASSIUM - SERUM 4.6 mmol/L (3.5-5.1); PROTEIN - SERUM 6.3 g/dL (6.4-8.2)
[2018-05-11 07:09] LABS: HEMATOCRIT 28.1 % (42.0-54.0); HEMOGLOBIN 9.2 g/dL (13.5-17.5); MCH 27.2 pg (26.0-34.0); MCHC 32.7 g/dL (31.0-37.0); MCV 83.1 fL (80.0-100.0); MEAN PLATELET VOLUME 9.9 fL (7.4-10.4); RBC 3.38 10x6/uL (4.20-6.10); WBC 11.1 10x3/uL (4.8-10.8)
[2018-05-12] VITALS (24 sets, daily range): BP systolic 120–154; BP diastolic 68–83
[2018-05-12 06:20] LABS: HEMATOCRIT 24.5 % (42.0-54.0); HEMOGLOBIN 8.1 g/dL (13.5-17.5); MCH 27.6 pg (26.0-34.0); MCHC 33.1 g/dL (31.0-37.0); MCV 83.3 fL (80.0-100.0); MEAN PLATELET VOLUME 9.5 fL (7.4-10.4); RBC 2.94 10x6/uL (4.20-6.10); WBC 10.8 10x3/uL (4.8-10.8)
[2018-05-12 06:44] LABS: ALBUMIN 1.9 g/dL (3.4-5.0); BILIRUBIN - TOTAL 0.38 mg/dL (0.2-1.3); CALCIUM 7.5 mg/dL (8.5-10.1); CARBON DIOXIDE 26.4 mmol/L (21.0-32.0); CREATININE - SERUM 1.7 mg/dL (0.6-1.3); POTASSIUM - SERUM 4.4 mmol/L (3.5-5.1)
[2018-05-13] VITALS (23 sets, daily range): BP systolic 117–161; BP diastolic 56–81
[2018-05-13 10:04] LABS: ANION GAP 14.8 mmol/L (8-16); CALCIUM 8.3 mg/dL (8.5-10.1); CARBON DIOXIDE 23.6 mmol/L (21.0-32.0); CREATININE - SERUM 2.1 mg/dL (0.6-1.3); POTASSIUM - SERUM 5.4 mmol/L (3.5-5.1)
[2018-05-13 10:10] LABS: HEMOGLOBIN 9.7 g/dL (13.5-17.5); MCH 27.6 pg (26.0-34.0); MCHC 32.8 g/dL (31.0-37.0); MCV 84.1 fL (80.0-100.0); MEAN PLATELET VOLUME 9.4 fL (7.4-10.4); RBC 3.52 10x6/uL (4.20-6.10); RDW 15.2 % (11.5-14.5); WBC 11.4 10x3/uL (4.8-10.8)
[2018-05-13 10:13] LABS: HEMATOCRIT 29.6 % (42.0-54.0)
[2018-05-14] VITALS (13 sets, daily range): BP systolic 108–159; BP diastolic 61–82
[2018-05-14 06:21] LABS: HEMOGLOBIN 9.2 g/dL (13.5-17.5); MCH 27.6 pg (26.0-34.0); MCHC 32.9 g/dL (31.0-37.0); MCV 84.1 fL (80.0-100.0); MEAN PLATELET VOLUME 9.2 fL (7.4-10.4); RBC 3.33 10x6/uL (4.20-6.10); RDW 15.1 % (11.5-14.5); WBC 10.5 10x3/uL (4.8-10.8)
[2018-05-14 06:44] LABS: ANION GAP 13.4 mmol/L (8-16); CARBON DIOXIDE 25.9 mmol/L (21.0-32.0); POTASSIUM - SERUM 5.3 mmol/L (3.5-5.1)
[2018-05-14] MEDS ORDERED: HEMOCYTE PLUS C1 CAP PO (13:09)
[2018-05-14] MEDS ORDERED: CORDARONE200 MG PO (13:10)
[2018-05-14] MEDS ORDERED: ASPIRIN81 MG PO (13:12)
[2018-05-14] MEDS ORDERED: LASIX40 MG PO (13:13)
[2018-05-14] MEDS ORDERED: COLACE100 MG PO (13:15)
[2018-05-14] MEDS ORDERED: SENOKOT-S TABLE1 TAB PO (13:36)
[2018-05-14] MEDS ORDERED: HYDROCODON-ACE1 EAC7 PO (13:40)
== END 2018-05-14 16:40 | disposition home or self-care (01) | DRG 234 ==
LOC: D.ER 11:12 → D.M2 13:19 → OBSVTIME 13:19 → D.EDHOLD 13:19 → D.M2 14:11 → D.CVICU 05-04 12:35
PROVIDERS: Emergency Medicine; Internal Medicine Cardiovascular Disease; Internal Medicine Nephrology
PROC: B2151ZZ Fluoroscopy of Left Heart using Low Osmolar Contrast (ICD-10-PCS; 2018-05-03)
PROC: 4A023N7 Measurement of Cardiac Sampling and Pressure, Left Heart, Percutaneous Approach (ICD-10-PCS; 2018-05-03)
PROC: B2111ZZ Fluoroscopy of Multiple Coronary Arteries using Low Osmolar Contrast (ICD-10-PCS; principal; 2018-05-03 12:19)
PROC: 02100ZC Bypass Coronary Artery, One Artery from Thoracic Artery, Open Approach (ICD-10-PCS; 2018-05-05)
PROC: 021109W Bypass Coronary Artery, Two Arteries from Aorta with Autologous Venous Tissue, Open Approach (ICD-10-PCS; 2018-05-05)
PROC: 06BP0ZZ Excision of Right Saphenous Vein, Open Approach (ICD-10-PCS; 2018-05-05)
PROC: 5A1221Z Performance of Cardiac Output, Continuous (ICD-10-PCS; 2018-05-05)
PROC: B24BZZ4 Ultrasonography of Heart with Aorta, Transesophageal (ICD-10-PCS; 2018-05-05)
DX: I25.110 Atherosclerotic heart disease of native coronary artery with unstable angina pectoris (principal); N17.9 Acute kidney failure, unspecified; G72.81 Critical illness myopathy; E11.22 Type 2 diabetes mellitus with diabetic chronic kidney disease; I12.9 Hypertensive chronic kidney disease with stage 1 through stage 4 chronic kidney disease, or unspecified chronic kidney disease; N18.2 Chronic kidney disease, stage 2 (mild); Z95.5 Presence of coronary angioplasty implant and graft; D64.9 Anemia, unspecified; R53.1 Weakness

== ENCOUNTER → 2018-05-28 13:54 | Outpatient (CLI) | payer MEDICARE, OTHER ==
[2018-05-07 13:22] VITALS: BMI 44.0
[~2018-05-28 13:54] MED LIST: ASPIRIN81 MG PO; CATAPRES0.1 MG PO; CHLORTHALIDONE25 MG PO; COLACE100 MG PO; CORDARONE200 MG PO; COZAAR100 MG PO; COZAAR50 MG PO; GLUCOPHAGE1000 MG PO; HEMOCYTE PLUS C1 CAP PO; HUMULIN 70100 UNIT/1 SQ; HYDROCHLOROTHIA25 MG PO; HYDROCODON-ACE1 EAC7 PO; LASIX40 MG PO; LOPRESSOR25 MG PO; NAPROSYN500 MG PO; NIFEDIPINE ER90 MG PO; PROTONIX40 MG PO; SENOKOT-S TABLE1 TAB PO; ZOCOR40 MG PO
[2018-05-28 14:50] LABS: BASOPHILS 0.4 % (0-2); EOSINOPHILS 3.8 % (0-7); HEMOGLOBIN 10.2 g/dL (13.5-17.5); IMMATURE GRANULOCYTES 0.2 % (0-5); LYMPHOCYTES 32.3 % (15-50); MCH 26.6 pg (26.0-34.0); MCHC 31.9 g/dL (31.0-37.0); MCV 83.6 fL (80.0-100.0); MONOCYTES 6.7 % (2-11); NEUTROPHILS 56.6 % (40-80); RBC 3.83 10x6/uL (4.20-6.10); RDW 14.2 % (11.5-14.5); WBC 5.2 10x3/uL (4.8-10.8)
[2018-05-28 14:54] LABS: PLATELET COUNT 333 10x3/uL (130-400)
[2018-05-28 15:11] LABS: ALBUMIN 2.8 g/dL (3.4-5.0); ANION GAP 7.7 mmol/L (8-16); BILIRUBIN - TOTAL 0.28 mg/dL (0.2-1.3); CALCIUM 8.6 mg/dL (8.5-10.1); CARBON DIOXIDE 30.1 mmol/L (21.0-32.0); CREATININE - SERUM 1.7 mg/dL (0.6-1.3); POTASSIUM - SERUM 3.8 mmol/L (3.5-5.1); PROTEIN - SERUM 7.4 g/dL (6.4-8.2)
== END | disposition home or self-care (01) ==
LOC: D.RAD 08:15
PROVIDERS: Internal Medicine Cardiovascular Disease
DX: J90 Pleural effusion, not elsewhere classified (principal); D64.9 Anemia, unspecified

== ENCOUNTER 2018-06-14 18:55 | Inpatient (IN) | payer MEDICARE, OTHER ==
[~2018-06-14] VITALS: Ht 180.3 cm; Wt 131.5 kg
[~2018-06-14 18:55] MED LIST changes: -CHLORTHALIDONE25 MG PO; -COZAAR50 MG PO; -HUMULIN 70100 UNIT/1 SQ; -PROTONIX40 MG PO
[2018-06-14 19:24] LABS: BASOPHILS 0.3 % (0-2); EOSINOPHILS 2.8 % (0-7); HEMATOCRIT 33.6 % (42.0-54.0); HEMOGLOBIN 10.8 g/dL (13.5-17.5); IMMATURE GRANULOCYTES 0.3 % (0-5); LYMPHOCYTES 28.4 % (15-50); MCH 26.7 pg (26.0-34.0); MCHC 32.1 g/dL (31.0-37.0); MCV 83.2 fL (80.0-100.0); MEAN PLATELET VOLUME 9.5 fL (7.4-10.4); MONOCYTES 7.1 % (2-11); NEUTROPHILS 61.1 % (40-80); PLATELET COUNT 292 10x3/uL (130-400); RBC 4.04 10x6/uL (4.20-6.10); RDW 13.9 % (11.5-14.5); WBC 7.6 10x3/uL (4.8-10.8)
[2018-06-14 19:39] LABS: ALKALINE PHOSPHATASE 65 U/L (46-116); ALT (SGPT) 14 U/L (10-68); BILIRUBIN - TOTAL 0.22 mg/dL (0.2-1.3); CALC OSMOLALITY 284 mosm/kg (275-300); CALCIUM 8.1 mg/dL (8.5-10.1); CARBON DIOXIDE 24.4 mmol/L (21.0-32.0); CHLORIDE - SERUM 104 mmol/L (98-107); POTASSIUM - SERUM 4.4 mmol/L (3.5-5.1); PROTEIN - SERUM 7.4 g/dL (6.4-8.2); SODIUM 139 mmol/L (136-145); UREA NITROGEN 17 mg/dL (7-18); eGFR NON AFRICAN AMERICAN 37 mL/min (90-120)
[2018-06-14 19:40] LABS: GLUCOSE 180 mg/dL (74-106)
[2018-06-14 19:56] LABS: CKMB 1.2 U/L (0.0-3.6); CREATINE KINASE 88 UL (21-232)
[2018-06-14 19:57] LABS: MAGNESIUM - SERUM 1.5 mg/dL (1.8-2.4)
[2018-06-14 20:21] LABS: APPEARANCE CLEAR (CLEAR); BILIRUBIN NEGATIVE (NEGATIVE); COLOR YELLOW (YELLOW); GLUCOSE NEGATIVE (NEGATIVE); KETONE NEGATIVE (NEGATIVE); NITRITE NEGATIVE (NEGATIVE); PROTEIN 3+ mg/dL (NEGATIVE); UROBILINOGEN NORMAL (NORMAL)
[2018-06-14 20:24] LABS: BACTERIA FEW /hpf (NONE SEEN); EPITHELIAL CELLS OCC /hpf (0-5); MUCUS <1+ /lpf (NONE SEEN); RED CELLS - URINE 0-5 /hpf (0-5); WHITE CELLS - URINE 0-5 /hpf (0-5)
[2018-06-14 21:27] VITALS: BP 142/76
[2018-06-14 22:55] VITALS: BP 132/73
[2018-06-15] VITALS (12 sets, daily range): BP systolic 131–196; BP diastolic 66–107; Ht 180.3 cm; Wt 131.5 kg
[2018-06-15] MEDS ORDERED: HYDROCHLOROTHIA25 MG PO (00:54)
[2018-06-15] MEDS ORDERED: COZAAR50 MG PO (00:54)
[2018-06-15] MEDS ORDERED: HUMULIN 70100 UNIT/1 SQ (00:57)
[2018-06-15 01:29] LABS: CKMB 1.2 U/L (0.0-3.6); CREATINE KINASE 111 UL (21-232); TROPONIN-I 0.079 ng/mL (0.000-0.060)
[2018-06-15 07:22] LABS: BASOPHILS 0.1 % (0-2); HEMOGLOBIN 9.7 g/dL (13.5-17.5); IMMATURE GRANULOCYTES 0.1 % (0-5); LYMPHOCYTES 30.6 % (15-50); MCH 26.6 pg (26.0-34.0); MCHC 32.3 g/dL (31.0-37.0); MCV 82.2 fL (80.0-100.0); MEAN PLATELET VOLUME 9.5 fL (7.4-10.4); NEUTROPHILS 58.2 % (40-80); PLATELET COUNT 249 10x3/uL (130-400); RBC 3.65 10x6/uL (4.20-6.10); RDW 13.9 % (11.5-14.5); WBC 6.9 10x3/uL (4.8-10.8)
[2018-06-15 07:53] LABS: ALBUMIN 2.5 g/dL (3.4-5.0); ALKALINE PHOSPHATASE 56 U/L (46-116); ALT (SGPT) 15 U/L (10-68); BILIRUBIN - TOTAL 0.21 mg/dL (0.2-1.3); CALC OSMOLALITY 282 mosm/kg (275-300); CALCIUM 7.8 mg/dL (8.5-10.1); CARBON DIOXIDE 25.7 mmol/L (21.0-32.0); CHLORIDE - SERUM 106 mmol/L (98-107); CREATINE KINASE 89 UL (21-232); CREATININE - SERUM 1.7 mg/dL (0.6-1.3); GLUCOSE 156 mg/dL (74-106); PROTEIN - SERUM 6.2 g/dL (6.4-8.2); SODIUM 139 mmol/L (136-145); UREA NITROGEN 17 mg/dL (7-18); eGFR NON AFRICAN AMERICAN 44 mL/min (90-120)
[2018-06-15 07:58] LABS: TROPONIN-I 0.074 ng/mL (0.000-0.060)
[2018-06-15 11:21] LABS: % SATURATION 21 % (15-55); IRON 42 ug/dl (35-150); TOTAL IRON BIND CAPACITY 191 ug/dl (260-445); UNSAT IRON BIND CAPACITY 149 ug/dl (150-375)
[2018-06-15 13:32] LABS: CKMB 1.6 U/L (0.0-3.6); CREATINE KINASE 113 UL (21-232)
[2018-06-15 13:34] LABS: TROPONIN-I 0.063 ng/mL (0.000-0.060)
[2018-06-15 18:43] LABS: CKMB 1.5 U/L (0.0-3.6); CREATINE KINASE 114 UL (21-232); TROPONIN-I 0.057 ng/mL (0.000-0.060)
[2018-06-16 00:06] LABS: CKMB 1.2 U/L (0.0-3.6); CREATINE KINASE 107 UL (21-232)
[2018-06-16 00:12] LABS: TROPONIN-I 0.083 ng/mL (0.000-0.060)
[2018-06-16 04:42] VITALS: BP 171/84
[2018-06-16 05:36] LABS: BASOPHILS 0.1 % (0-2); EOSINOPHILS 2.9 % (0-7); HEMATOCRIT 33.8 % (42.0-54.0); HEMOGLOBIN 11.1 g/dL (13.5-17.5); IMMATURE GRANULOCYTES 0.1 % (0-5); LYMPHOCYTES 24.3 % (15-50); MCH 26.6 pg (26.0-34.0); MCHC 32.8 g/dL (31.0-37.0); MCV 81.1 fL (80.0-100.0); MONOCYTES 6.3 % (2-11); NEUTROPHILS 66.3 % (40-80); RBC 4.17 10x6/uL (4.20-6.10); RDW 14.1 % (11.5-14.5); WBC 6.9 10x3/uL (4.8-10.8)
[2018-06-16 05:44] LABS: PLATELET COUNT 307 10x3/uL (130-400)
[2018-06-16 06:11] LABS: CALC OSMOLALITY 284 mosm/kg (275-300); CALCIUM 8.6 mg/dL (8.5-10.1); CARBON DIOXIDE 24.8 mmol/L (21.0-32.0); CHLORIDE - SERUM 106 mmol/L (98-107); CREATINE KINASE 95 UL (21-232); CREATININE - SERUM 1.5 mg/dL (0.6-1.3); GLUCOSE 123 mg/dL (74-106); POTASSIUM - SERUM 3.9 mmol/L (3.5-5.1); SODIUM 142 mmol/L (136-145); UREA NITROGEN 15 mg/dL (7-18); eGFR NON AFRICAN AMERICAN 51 mL/min (90-120)
[2018-06-16 06:15] LABS: TROPONIN-I 0.073 ng/mL (0.000-0.060)
[2018-06-16 08:17] LABS: FOLATE (FOLIC ACID) - SERUM 16.2 ng/mL (>3.0)
[2018-06-16 08:23] VITALS: BP 195/93
[2018-06-16 11:28] VITALS: BP 192/90
[2018-06-16 15:54] VITALS: BP 173/103
[2018-06-16 21:31] VITALS: BP 176/99
[2018-06-17 05:13] VITALS: BP 171/94
[2018-06-17 05:44] LABS: BASOPHILS 0.3 % (0-2); EOSINOPHILS 2.4 % (0-7); HEMATOCRIT 32.7 % (42.0-54.0); HEMOGLOBIN 10.6 g/dL (13.5-17.5); IMMATURE GRANULOCYTES 0.2 % (0-5); LYMPHOCYTES 32.5 % (15-50); MCH 26.2 pg (26.0-34.0); MCHC 32.4 g/dL (31.0-37.0); MCV 80.9 fL (80.0-100.0); MEAN PLATELET VOLUME 9.7 fL (7.4-10.4); MONOCYTES 9.5 % (2-11); NEUTROPHILS 55.1 % (40-80); PLATELET COUNT 295 10x3/uL (130-400); RBC 4.04 10x6/uL (4.20-6.10); RDW 14.1 % (11.5-14.5); WBC 5.8 10x3/uL (4.8-10.8)
[2018-06-17 06:03] LABS: ANION GAP 16.5 mmol/L (8-16); CALCIUM 8.4 mg/dL (8.5-10.1); CARBON DIOXIDE 23.1 mmol/L (21.0-32.0); CREATININE - SERUM 1.7 mg/dL (0.6-1.3); POTASSIUM - SERUM 3.6 mmol/L (3.5-5.1)
[2018-06-17 08:31] VITALS: BP 157/77
[2018-06-17 13:20] VITALS: BP 180/99
[2018-06-17] MEDS ORDERED: PROTONIX40 MG PO (14:31)
[2018-06-17] MEDS ORDERED: CHLORTHALIDONE25 MG PO (14:33)
== END 2018-06-17 18:43 | disposition home or self-care (01) | DRG 312 ==
LOC: D.ER 18:55 → OBSVTIME 23:33 → D.MS 23:33 → D.SDCHOLD 06-15 16:33 → D.MS 06-15 16:34
PROVIDERS: Family Medicine; Internal Medicine Nephrology
DX: I95.2 Hypotension due to drugs (principal); T46.5X5A Adverse effect of other antihypertensive drugs, initial encounter; T46.1X5A Adverse effect of calcium-channel blockers, initial encounter; E11.22 Type 2 diabetes mellitus with diabetic chronic kidney disease; I12.9 Hypertensive chronic kidney disease with stage 1 through stage 4 chronic kidney disease, or unspecified chronic kidney disease; N18.3 Chronic kidney disease, stage 3 (moderate); Z79.4 Long term (current) use of insulin; E11.40 Type 2 diabetes mellitus with diabetic neuropathy, unspecified; I25.10 Atherosclerotic heart disease of native coronary artery without angina pectoris; D50.9 Iron deficiency anemia, unspecified; E78.5 Hyperlipidemia, unspecified; I48.0 Paroxysmal atrial fibrillation; Z95.1 Presence of aortocoronary bypass graft

== ENCOUNTER → 2018-07-27 09:26 | Outpatient (CLI) | payer MEDICARE, OTHER ==
[2018-06-15 15:25] VITALS: BMI 40.4
--- NOTE | ~2018-07-27 | EC ---
PATIENT:SHARATH STONE DATE OF SERVICE: 07/27/18 SEX: M MEDICAL RECORD: [id number] DATE OF : 62 LOCATION:D[facility] AGE OF PATIENT: 58 ADMISSION DATE: 07/27/18 REFERRING PHYSICIAN: INTERPRETING PHYSICIAN: JUSTYN PROCTOR MD ECHOCARDIOGRAM REPORT ECHO CHARGES 4 ECHO COMPLETE Date: 07/27/18 CLINICAL DIAGNOSIS: CAD/HTN - H/O CABG ECHOCARDIOGRAPHIC MEASUREMENTS (adult normal given) AC root (d.<3.7cm) 3.5 cm LV Septum d (<1.2 cm> 1.2 cm Valve Excursion 2.1 cm LV Septum (systole) 1.5 cm Left Atria (s.<4.0cm> 3.6 cm LVPW d(<1.2cm) 1.2 cm RV (d.<2.3cm) 2.6 cm LVPW (sytole) 2.5 cm LV diastole(<5.6CM) 5.9 cm MV E-F(>70mm/sec) cm LV systole 4.0 cm LVOT Diameter 2.0 cm MV exc.(>10mm) cm Est.ejection fraction (50-75%) % DOPPLER: LVIT cm/sec A 76.0 cm/sec E 62.0 cm/sec LA cm/sec RVSP 28.0 mmHg LVOT 100 cm/sec AOP1/2T m/s Asc. Ao 121 cm/sec RVOT 75.0 cm/sec RA cm/sec PA 96.0 cm/sec AV Gradient Peak 5.9 mmHg AV Mean 2.9 mmHg AV Area 2.1 cm MV Gradient Peak 3.3 mmHg MV Mean 1.3 mmHg MV Area cm COMMENTS: Paint Pourer: 1 JULITO DYEOE Human Resources Project Coordinator: 4 Dr. Proctor TAPE# PACS Pericardial Effusion N DATE OF SERVICE: PROCEDURE: Transthoracic echocardiogram. FINDINGS: This is a technically difficult echocardiogram. Structures are not well visualized. Has a history of coronary artery bypass grafting. Endocardium was difficult to visualize, appears to be mildly diminished left ventricular systolic function at 50. Ejection fraction overall in the 30% to 40% range; however, given the difficulties in assessing his LV, this certainly could very to some degree appears to be an anterior apical area of hypokinesis, mostly in ECHOCARDIOGRAM REPORT [id number] SHARATH STONE the apical portion. FINDINGS: 1. The left atrium is normal size. 2. The aortic valve appears to be normal. 3. Mitral valve has ftxxbjwb-gv-yhhdew mitral regurgitation. 4. Tricuspid valve has trace tricuspid regurgitation. RVSP is 20 mmHg. 5. The right ventricle and right atrium appear to be grossly normal. There is no significant pericardial effusion. CONCLUSIONS: This is a difficult echocardiogram to interpret. The images were difficult to visualize. There appears to be some degree regional wall motion abnormalities and decreased left ventricular systolic function, hard to exactly quantify, it may be reasonable given the patient is in sinus rhythm to do a nuclear tagged study for an accurate ejection fraction such as a nuclear ventriculogram. TRANSINT:[id number] Voice Confirmation ID: [id number] DOCUMENT ID: [id number] JUSTYN PROCTOR MD CC: [id number] DICTATION DATE: 08/03/18 0553 AUDIO VIDEO TECHNICIAN: 08/03/18 0757 DEP CLI 07/27/18 [facility] [address] [place] [address]
[~2018-07-27 09:26] MED LIST changes: +CHLORTHALIDONE25 MG PO; +COZAAR50 MG PO; +HUMULIN 70100 UNIT/1 SQ; +PROTONIX40 MG PO
== END | disposition home or self-care (01) ==
LOC: D.ECHO 09:26
DX: I25.810 Atherosclerosis of coronary artery bypass graft(s) without angina pectoris (principal); I10 Essential (primary) hypertension; Z95.1 Presence of aortocoronary bypass graft

== ENCOUNTER → 2018-09-01 09:42 | Outpatient (CLI) | payer MEDICARE, OTHER ==
[2018-06-15 15:25] VITALS: BMI 40.4
[2018-09-01 17:28] LABS: CHOL - HDL RATIO 3.7 ratio (2.3-4.9); LDL-HDL RATIO 2.5 ratio (1.5-3.5)
== END | disposition home or self-care (01) ==
LOC: D.HCCARDIO 08-31 09:30
PROVIDERS: Internal Medicine Cardiovascular Disease
DX: I25.810 Atherosclerosis of coronary artery bypass graft(s) without angina pectoris (principal)

== ENCOUNTER → 2018-09-01 17:27 | Outpatient (CLI) | payer MEDICARE, OTHER ==
[2018-06-15 15:25] VITALS: BMI 40.4
--- NOTE | ~2018-09-01 | ST ---
PATIENT:SHARATH STONE MEDICAL RECORD: [id number] SEX: M LOCATION:D.LAB ORDER #: ADMISSION DATE: 09/01/18 AGE OF PATIENT: 58 REFERRING PHYSICIAN: INTERPRETING PHYSICIAN: REYNALDO NOVAK MD DATE OF SERVICE: 09/01/2018 PROCEDURE: Nuclear Stress Test. INDICATION: Coronary artery disease and angina. The patient was exercised on standard Lexiscan protocol with 32.9 mCi injected at peak stress, 10.2 mCi of sestamibi injected previously for rest images. FINDINGS: Gated SPECT reveals mildly depressed ejection fraction of 43% with decreased thickening and brightening throughout the inferior segments. SPECT imaging Cardiolite was used as a myocardial fusion agent. There is fixed perfusion defect inferiorly compatible with previous inferior myocardial infarction; however, there is no ongoing ischemic burden. The remaining segments are with homogeneous uptake at rest and stress. OVERALL IMPRESSION: This is a stable nuclear stress test only showing a previous inferior myocardial infarction, no ongoing ischemia, ejection fraction mildly depressed, but preserved at 43%. Continue medical management of the coronary artery disease and cardiac risk factors. TRANSINT:[id number] Voice Confirmation ID: [id number] DOCUMENT ID: [id number] REYNALDO NOVAK MD at 1718 CC: [id number] DICTATION DATE: 09/01/18 1640 ART SUPERVISOR: 09/02/18 0716 [facility] CLI 09/01/18 [facility] [place] [id number] [place] [address]
== END | disposition home or self-care (01) ==
LOC: D.LABREF 17:27
DX: E78.5 Hyperlipidemia, unspecified (principal)

== ENCOUNTER → 2018-12-08 12:53 | Outpatient (CLI) | payer MEDICARE, OTHER ==
[2018-06-15 15:25] VITALS: BMI 40.4
== END | disposition home or self-care (01) ==
LOC: D.US 12:53
PROVIDERS: ATTEND Internal Medicine Cardiovascular Disease
DX: I70.213 Atherosclerosis of native arteries of extremities with intermittent claudication, bilateral legs (principal)

== ENCOUNTER → 2018-12-16 11:28 | Outpatient (CLI) | payer MEDICARE, OTHER ==
[2018-06-15 15:25] VITALS: BMI 40.4
== END | disposition home or self-care (01) ==
LOC: D.CT 11:28
PROVIDERS: ATTEND Internal Medicine Cardiovascular Disease
DX: I70.213 Atherosclerosis of native arteries of extremities with intermittent claudication, bilateral legs (principal)

== ENCOUNTER 2018-12-23 05:30 | Outpatient (CLI) | payer MEDICARE, OTHER ==
[~2018-12-23] VITALS: Ht 180.3 cm; Wt 142.3 kg
--- NOTE | ~2018-12-23 | HEMODYNAMI ---
PATIENT:SHARATH STONE MEDICAL RECORD: [id number] : 62 LOCATION:[facility] ADMISSION DATE: 12/23/18 Generatedon:12/23/201810:47 Patient name: SHARATH STONE Patient #: [id number] SSN: D OB: 1960 Date of study: 12/23/2018 Page: Of Hemodynamic Procedure Report Patient Data Patient Demographics Procedure consent was obtained First Name: SHARATH Gender: Male Last Name: BERTHA : 1960 Middle Initial: SOHEILA Age: 58 year(s) Patient #: [id number] Race: Black Additional ID: [id number] Contact details [address]: [address] [place] [address] State: [place] City: [place] Zip code: [address] Past Medical History Allergies Allergen Reaction Date Comments Reported Other allergy 05/03/2018 codeine Codeine 12/23/2018 Admission Admission Data Admission Date: 12/23/2018 Admission Time: 5:30 Height (in.): 71 BSA: 2.55 (m2) Height (cm.): 180.34 BMI: 43.65 (kg/m2) Weight (lbs.): 313 Weight (kg.): 141.97 Procedure Procedure Types Cath Procedure Peripheral Cath Diagnostic Procedure Nuclear Medicine Tech Peripheral Procedures Abd/Extremity Extremities Bilat Lower Extremity Procedure Description Procedure Date Procedure Date: 12/23/2018 Procedure Start Time: 8:59 Procedure Staff Name Function Evret Plascencia MD Performing Physician Farideh Monique RT Manager Real Estate Kacei Chaudhry RN Nurse Linnette Bullock Scrub Procedure Data Cath Procedure Fluoroscopy Diagnostic fluoroscopy Total fluoroscopy Time: time: 13.1 min 13.1 min Diagnostic fluoroscopy Total fluoroscopy dose: dose: 1580 mGy 1580 mGy Contrast Material Contrast Material Type Amount (ml) Isovue 300 110 Diagnostic catheters Device Type Used For End Catheter Placement Merit Impress KA 2 5Fr 40CM catheter ([id number]) DIAGNOSTIC IMT 5Fr Catheter ([id number]) Angiodynamics SOS OMNI 2 NON B 5FR 65CM catheter ([id number]) Procedure Medications Medication Administration Route Dosage Heparin Flush Bag added to field 3 bags (1000units/500ml NS) Lidocaine 1% added to field 20 Versed I.V. 1 mg Fentanyl I.V. 50 mcg Versed I.V. 1 mg Fentanyl I.V. 50 mcg Versed I.V. 1 mg Fentanyl I.V. 50 mcg Versed I.V. 1 mg Fentanyl I.V. 50 mcg Hemodynamics Rest BSA: 2.55 (m2) O2 Consumption: Estimated: 307.58 (ml/min) O2 Consumption indexed : Estimated:120.62 (ml/min/m) Heart Rate: 77 (bpm) Snapshots Pre Cath Intra NCS Post Cath Vital Signs Time Heart Resp SPO2 etCO2 NIBP (mmHg) Rhythm Pain Sedation Rate (ipm) (%) (mmHg) Status Level (bpm) 8:44:38 78 9 100 34.7 171/93(136) NSR 0 (11) 10(A) , No pain 8:49:06 77 11 100 33.2 165/85(136) NSR 0 (11) 10(A) , No pain 8:53:35 74 9 100 36.3 156/87(133) NSR 0 (11) 10(A) , No pain 8:57:57 73 12 100 30.2 162/90(128) NSR 0 (11) 9(A) , No pain 9:02:56 73 17 100 32.5 Measuring NSR 0 (11) 9(A) , No pain 9:04:20 72 13 100 33.2 Time NSR 0 (11) 9(A) Exceeded , No pain 9:06:53 71 8 100 31.7 149/89(125) NSR 0 (11) 9(A) , No pain 9:11:21 73 11 100 35.5 161/62(86) NSR 0 (11) 9(A) , No pain 9:15:46 76 8 100 34 164/94(143) NSR 0 (11) 9(A) , No pain 9:20:10 74 10 99 37.1 166/95(138) NSR 0 (11) 8(A) , No pain 9:24:32 75 2 100 38.5 164/93(145) NSR 0 (11) 8(A) , No pain 9:28:56 72 7 100 37.8 167/96(145) NSR 0 (11) 8(A) , No pain 9:33:18 72 0 100 37.8 161/91(131) NSR 0 (11) 8(A) , No pain 9:37:41 71 8 100 37.8 154/89(132) NSR 0 (11) 8(A) , No pain 9:42:03 72 39 100 37.1 163/93(139) NSR 0 (11) 8(A) , No pain 9:46:27 72 14 100 37.1 155/97(135) NSR 0 (11) 8(A) , No pain 9:50:47 70 12 100 34.7 161/98(129) NSR 0 (11) 8(A) , No pain 9:55:07 75 10 100 40 156/93(137) NSR 0 (11) 8(A) , No pain 9:59:29 72 11 100 39.3 160/99(137) NSR 0 (11) 8(A) , No pain 10:03:50 70 10 100 39.3 167/100(148) NSR 0 (11) 8(A) , No pain 10:08:12 71 12 99 40.1 160/99(129) NSR 0 (11) 8(A) , No pain 10:12:34 73 13 98 37.8 163/108(139) NSR 0 (11) 8(A) , No pain 10:16:58 72 13 98 38.6 172/102(143) NSR 0 (11) 8(A) , No pain 10:21:24 76 11 99 38.6 173/104(150) NSR 0 (11) 8(A) , No pain 10:25:49 74 14 100 37 172/92(135) NSR 0 (11) 8(A) , No pain 10:30:11 75 10 99 41.6 174/104(155) NSR 0 (11) 8(A) , No pain 10:34:31 73 13 100 40.1 168/103(151) NSR 0 (11) 8(A) , No pain 10:38:53 75 14 100 40.1 169/110(148) NSR 0 (11) 8(A) , No pain 10:43:19 78 11 100 39.3 176/111(157) NSR 0 (11) 8(A) , No pain Medications Time Medication Route Dose Verified Delivered Reason Notes Effe ctiveness by by 8:48:20 Heparin Flush added 3 Evert Loyd used for Bag to bags Thais Plascencia MD procedure (1000units/500ml field NS) 8:48:33 Lidocaine 1% added 20ml Evert Loyd for local to vial Thais Plascencia MD anesthetic field 9:15:21 Versed I.V. 1 mg Evert Hester for Isidoro Plascencia RN sedation 9:15:31 Fentanyl I.V. 50 Evert Hester for mcg Isidoro Plascencia RN sedation 9:18:59 Versed I.V. 1 mg Evert Kacie for Isidoro Plascencia RN sedation 9:19:06 Fentanyl I.V. 50 Evert Kacie for mcg Isidoro Plascencia RN sedation 9:48:01 Versed I.V. 1 mg Evert Kacie for Isidoro Plascencia RN sedation 9:48:09 Fentanyl I.V. 50 Evert Kacie for mcg Isidoro Plascencia RN sedation 10:24:11 Versed I.V. 1 mg Evert Kacie for Isidoro Plascencia RN sedation 10:24:18 Fentanyl I.V. 50 Evert Kacie for mcg Isidoro Plascencia RN sedation Procedure Log Time Note 8:13:43 Patient Weight : 313 lbs 8:13:47 Patient Height : 71 inches 8:14:13 Use device set IR Diagnostic 8:14:14 Tegaderm 4 x 4 (1626W) opened to sterile field. 8:14:15 Sterile Angiographic Pack opened to sterile field. 8:14:16 Bag Decanter () opened to sterile field. 8:14:18 ACIST Manifold (46365) opened to sterile field. 8:14:19 ACIST Hand Control (01137) opened to sterile field. 8:14:20 ACIST Syringe (39774) opened to sterile field. 8:14:44 DOC .035 wire (T77463) opened to sterile field. 8:14:45 Micropuncture VSI 4FR kit opened to sterile field. 8:14:46 SHEATH 5FR Eden (CMM103) opened to sterile field. 8:22:16 Time tracking: Regular hours (M-F 7:00 - 5:00) 8:22:33 Plan of Care:Hemodynamics will remain stable., Cardiac rhythm will remain stable., Comfort level will be maintained., Respiratory function will remain adequate., Patient/ family verbilizes understanding of procedure., Procedure tolerated without complication., Recovers from procedure without complications.. 8:22:40 Patient received from Outpatients to IR Alert and oriented. Tansferred to table in Supine position. 8:22:41 Correct patient and procedure confirmed by team. 8:22:43 Signed procedure consent form obtained from patient. 8:22:49 H&P Date Dictated: 12/23/2018 Within 30 days and on chart.. 8:22:52 Pre-procedure instructions explained to patient. 8:22:53 Pre-op teaching completed and patient verbalized understanding. 8:22:57 Family in waiting room. 8:22:59 Patient NPO since Midnight. 8:23:11 Patient allergic to Codeine 8:23:16 Is the patient allergic to Iodine/contrast media? No. 8:23:19 Is patient on blood thinner?Yes 8:23:22 Patient diabetic? Yes. 8:23:33 If diabetic: On Metformin? No 8:23:37 - 8:23:40 ----Pre-sedation anethsthesia assessment.---- 8:23:44 Previous problem with sedation/anesthesia? No ? 8:23:47 Snore? Yes 8:23:49 Sleep apnea? Yes 8:23:52 Deviated septum? No 8:23:54 Opens mouth fully? Yes 8:23:56 Sticks out tongue? Yes 8:24:00 Airway obstruction? Yes cad 8:24:09 Dentures? Yes out 8:24:12 - 8:24:23 IV patent on arrival in left hand with D5/.45%NaCl at KVO. 8:43:06 - 8:43:18 ECG and BP/O2 sat monitors applied to patient. 8:43:19 Vital chart was started 8:43:23 Baseline sample Acquired. 8:43:27 Full Disclosure recording started 8:43:30 - 8:43:35 - 8:43:57 Pre procedure: right dorsailis pedis pulse Doppler 8:44:01 Pre procedure: left dorsailis pedis pulse Doppler 8:44:07 Pre procedure: right posterior tibial pulse Doppler 8:44:12 Pre procedure: left posterior tibial pulse Doppler 8:48:20 Heparin Flush Bag (1000units/500ml NS) 3 bags added to field was administered by Evert Plascencia MD; used for procedure; 8:48:33 Lidocaine 1% 20ml vial added to field was administered by Evert Plascencia MD; for local anesthetic; 8:48:50 - 8:49:02 Left groin area was prepped with chlora-prep and draped in sterile fashion 8:58:55 Physician arrived 8:58:56 --------ALL STOP TIME OUT------ 8:58:57 Final Timeout: patient, procedure, and site verified with staff and physician. All members of the team are in agreement. 8:59:12 Procedure started. 8:59:35 Local anesthetic to left femerol artery with Lidocaine 1% by Evert Plascencia MD.INITIAL ACCESS ONLY 8:59:38 Arterial access obtained using ultrasound guidance. 9:02:38 Angiodynamics Omniflush 5Fr 65cm ([id number]) opened to sterile field. 9:15:21 Versed 1 mg I.V. was administered by Kacie Chaudhry RN; for sedation; 9:15:31 Fentanyl 50 mcg I.V. was administered by Kacie Chaudhry RN; for sedation ; 9:18:59 Versed 1 mg I.V. was administered by Kacie Chaudhry RN; for sedation; 9:19:06 Fentanyl 50 mcg I.V. was administered by Kacie Chaudhry RN; for sedation ; 9:32:26 AMPLATZ Super Stiff 75cm wire ([id number]) opened to sterile field. 9:32:35 A Merit Impress KA 2 5Fr 40CM catheter ([id number]) was advanced over the wire and used for . 9:48:01 Versed 1 mg I.V. was administered by Kacie Chaudhry RN; for sedation; 9:48:09 Fentanyl 50 mcg I.V. was administered by Kacie Chaudhry RN; for sedation ; 10:00:54 GLIDE WIRE ANGLE 180cm (XD2595) opened to sterile field. 10:01:01 TORQUE DEVICE PLASTIC .038 ( TD01) opened to sterile field. 10:02:18 GLIDE CATHETER 5FR ANGLED 65cm (CG507) opened to sterile field. 10:04:56 A DIAGNOSTIC IMT 5Fr Catheter ([id number]) was advanced over the wire an d used for . 10:07:50 A Angiodynamics SOS OMNI 2 NON B 5FR 65CM catheter ([id number]) was advanced over the wire and used for . 10:21:13 GLIDE WIRE Super Stiff Angled 260cm (KW4223) opened to sterile field. 10:24:11 Versed 1 mg I.V. was administered by Kacie Chaudhry RN; for sedation; 10:24:18 Fentanyl 50 mcg I.V. was administered by Kacie Chaudhry RN; for sedation ; 10:26:17 ANGIOSEAL-[facility] PLUS 6 FR opened to sterile field. 10:30:35 Procedure ended.(Physican Out) 10:30:45 Fluoroscopy time 13.10 minutes. 10:30:53 Fluoroscopy dose: 1580 mGy 10:30:53 Flurop Dose total: 1580 10:34:26 Contrast amount:Isovue 300 110ml. 10:34:42 Procedure and supply charges have been captured, reviewed, submitted an d are correct. 10:35:06 Post Procedure Pulses reassessed and unchanged 10:46:20 Report given to Outpatients. 10:47:12 Vital chart was stopped Device Usage Item Name Manufacture Quantity Catalog Number Hospital Part Current [facility] Lot# / Charge Number Stock Stock Serial# Code Tegaderm 4 x 3M 1 1626W [id number] [id number] 5 4 (1626W) Sterile Cardinal 1 [id number] 470279 878331 5 Angiographic Health Pack Bag Decanter Microtek 1 692704 89151 204013 5 () Medical Inc. ACIST Acist Medical 1 94718 169201 308738 958139 5 Manifold Systems Inc (07799) ACIST Hand Acist Medical 1 38278 645899 577855 968572 5 Control Systems Inc (96145) ACIST Syringe Acist Medical 1 12432 766730 421881 683379 20 (58391) Systems Inc DOC .035 wire Cook Medical 1 F08568 219011 178065 5 (E44439) Micropuncture VSI VASCULAR 1 7266V 829268 708261 5 VSI 4FR kit SOLUTIONS SHEATH 5FR Terumo 1 LFJ329 280253 652368 519576 5 Eden (EXA979) Angiodynamics Angiodynamics 1 90516232 615859 213970 098926 5 Omniflush 5Fr 65cm (53266749) AMPLATZ Super [place] 1 [id number] 642836 428728 905424 5 Stiff 75cm Scientific wire ([id number]) Merit Impress Merit Medical 1 [id number] 680211 299099 5 KA 2 5Fr 40CM catheter (49835RN7) GLIDE WIRE Terumo 1 IT6144 414022 272139 188964 5 ANGLE 180cm (RS2040) TORQUE DEVICE [place] 1 TD01 908802 516834 703300 5 PLASTIC .038 Scientific ( TD01) GLIDE Terumo 1 CG507 737820 915109 5 CATHETER 5FR ANGLED 65cm (CG507) DIAGNOSTIC [place] 1 [id number] 762637 931232 04071 5 [id number] IMT 5Fr Scientific Catheter ([id number]) Angiodynamics Angiodynamics 1 81482303 637330 71214 368550 5 SOS OMNI 2 NON B 5FR 65CM catheter ([id number]) GLIDE WIRE Terumo 1 HK7124 316853 036153 465768 5 Super Stiff Angled 260cm (EL9261) ANGIOSEAL-[facility] 1 805224 662051 593896 819952 5 110160 PLUS 6 FR Signature Audit Bee Stage Time Signature Unsigned Intra-Procedure 12/23/2018 Farideh Monique 10:47:00 AM RT(R) [facility] [address] [place] [address]
[2018-12-23 06:11] LABS: BASOPHILS 0.2 % (0-2); HEMATOCRIT 38.9 % (42.0-54.0); HEMOGLOBIN 12.9 g/dL (13.5-17.5); MCH 27.3 pg (26.0-34.0); MCHC 33.2 g/dL (31.0-37.0); MCV 82.4 fL (80.0-100.0); MEAN PLATELET VOLUME 9.7 fL (7.4-10.4); MONOCYTES 7.4 % (2-11); NEUTROPHILS 45.4 % (40-80); PLATELET COUNT 242 10x3/uL (130-400); RBC 4.72 10x6/uL (4.20-6.10); RDW 14.2 % (11.5-14.5); WBC 5.3 10x3/uL (4.8-10.8)
[2018-12-23 06:18] LABS: ANION GAP 12.2 mmol/L (8-16); APTT 29.2 SECONDS (22.8-39.4); CALCIUM 8.1 mg/dL (8.5-10.1); CARBON DIOXIDE 27.4 mmol/L (21.0-32.0); CREATININE - SERUM 1.5 mg/dL (0.6-1.3); INR 0.95 (0.85-1.17); POTASSIUM - SERUM 3.6 mmol/L (3.5-5.1); PROTIME 12.2 SECONDS (11.6-15.0)
[2018-12-23] MEDS ORDERED: LASIX40 MG PO (06:19)
[2018-12-23] MEDS ORDERED: ADALAT CC90 MG PO (06:21)
[2018-12-23] MEDS ORDERED: TRULICITY1.5 MG/0.5 SC (06:23)
[2018-12-23 06:38] VITALS: BP 101/66; Ht 180.3 cm; Wt 142.3 kg
--- NOTE | 2018-12-23 13:26 | NUR ---
1200 DILAUDED GIVEN FOR C\O BACK PAIN. MT DR PEDERSEN dILAUDID 0.5 MG GIVEN IV. 1230 PT SLEEPING SOUNDLY WITHOUT COMPLAINT
== END 2018-12-23 15:00 | disposition home or self-care (01) ==
LOC: D.SP 05:30 → D.RAD 08:00 → D.SP 15:00
PROVIDERS: ATTEND General Practice
DX: I70.213 Atherosclerosis of native arteries of extremities with intermittent claudication, bilateral legs (principal); Z01.812 Encounter for preprocedural laboratory examination

== ENCOUNTER → 2019-02-02 14:46 | Outpatient (CLI) | payer MEDICARE, OTHER ==
[~2019-02-02 14:46] MED LIST changes: +ADALAT CC90 MG PO; +TRULICITY1.5 MG/0.5 SC
== END | disposition home or self-care (01) ==
LOC: D.MRI 14:46
DX: M54.5 Low back pain (principal); M79.652 Pain in left thigh; M79.651 Pain in right thigh

== ENCOUNTER 2019-08-11 06:07 | Observation (INO) | payer MEDICARE, OTHER ==
[~2019-08-11] VITALS: Ht 180.3 cm; Wt 143.6 kg
--- NOTE | ~2019-08-11 | HEMODYNAMI ---
PATIENT:SHARATH STONE MEDICAL RECORD: [id number] : 62 [facility] ADMISSION DATE: 08/11/19 Generatedon:08/12/20198:16 Patient name: SHARATH STONE Patient #: [id number] SSN: [id number] : 1960 Date of study: 08/12/2019 Page: Of Hemodynamic Procedure Report Patient Data Patient Demographics Procedure consent was obtained First Name: SHARATH Gender: Male Last Name: BERTHA : 1960 Middle Initial: MARINAWARD Age: 59 year(s) Patient #: [id number] Race: Black SSN: [id number] Additional ID: [id number] Contact details [address]: [address] [place] [address] State: [place] City: [place] Zip code: [address] Past Medical History Allergies Allergen Reaction Date Comments Reported Other allergy 05/03/2018 codeine Codeine 12/23/2018 Codeine 08/11/2019 Other allergy 08/12/2019 CODEINE Admission Admission Data Admission Date: 08/11/2019 Admission Time: 9:44 Arrival Date: 08/12/2019 Arrival Time: 0:00 Admit Source: Emergency Insurance Payor: Medicare department [facility] #: [id number] Room #: D.2117 Height (in.): 70.87 BSA: 2.56 (m2) Height (cm.): 180 BMI: 44.44 (kg/m2) Weight (lbs.): 317.47 Weight (kg.): 144 Lab Results Lab Result Date: 08/12/2019 Lab Result Time: 0:00 Biochemistry Name Units Result Min Max BUN mg/dl 30 --(----)-* 7 18 CK-MB ng/ml 2 --(--*-)-- 0 3.6 Creatinine mg/dl 2.4 --(----)-* 0.6 1.3 eGFR ml/min 36 *-(----)-- 90 120 AM Troponin l ng/ml 0.02 --(-*--)-- 0 0.06 CBC Name Units Result Min Max Hemoglobin g/dl 12.7 -*(----)-- 13.5 17.5 Procedure Procedure Types Cath Procedure Diagnostic Procedure [facility] w/Coronaries w/Grafts Procedure Description Procedure Date Procedure Date: 08/12/2019 Procedure Start Time: 8:02 Procedure End Time: 8:12 Procedure Staff Name Function Jorge Pinto MD Performing Physician Miladis Chakraborty RT Monitor Rk Draper RN Nurse Noreen Ayala RT Scrub Indication Chest pain Procedure Data Cath Procedure Fluoroscopy Diagnostic fluoroscopy Total fluoroscopy Time: 2.5 time: 2.5 min min Diagnostic fluoroscopy Total fluoroscopy dose: 769 dose: 769 mGy mGy Contrast Material Contrast Material Type Amount (ml) Isovue 300 52 Entry Location Entry Primary Successful Side Size Upsize Upsize Entry Closure Succes sful Closure Location (Fr) 1 (Fr) 2 (Fr) Remarks Device Remarks Femoral Right 5 Fr Exoseal artery Estimated blood loss: 5 ml Diagnostic catheters Device Type Used For End Catheter Placement MULTIPACK Pigtail 5 Fr Procedure catheter MULTIPACK JL 4.0 5Fr Procedure catheter MULTIPACK 3DRC 5Fr Procedure catheter DIAGNOSTIC AR2 MOD 5 Fr Procedure catheter ([id number]) Procedure Complications No complications Procedure Medications Medication Administration Route Dosage Oxygen etCO2 Nasal cannula 2 l/min Lidocaine 2% added to field 20 Heparin Flush Bag added to field 2 bags (1000units/500ml NS) 0.9% NaCl I.V. 150 ml/hr Lopressor I.V. 5 mg Versed I.V. 2 mg Fentanyl I.V. 100 mcg Versed I.V. 1 mg Fentanyl I.V. 50 mcg Hemodynamics Rest BSA: 2.56 (m2) O2 Consumption: Estimated: 348.16 (ml/min) O2 Consumption indexed : Estimated:136 (ml/min/m) Pre Cath Intra NCS Post Cath Vital Signs Time Heart Resp SPO2 etCO2 NIBP (mmHg) Rhythm Pain Sedation Rate (ipm) (%) (mmHg) Status Level (bpm) 7:45:56 87 20 99 0 185/107(170) NSR 0 (11) 10(A) , No pain 7:50:47 85 14 100 0 197/111(149) NSR 0 (11) 10(A) , No pain 7:55:40 83 16 96 30.1 194/116(165) NSR 0 (11) 10(A) , No pain 8:00:30 86 16 97 33.9 191/111(163) NSR 0 (11) 10(A) , No pain 8:06:45 83 12 94 35.3 197/119(144) NSR 0 (11) 9(A) , No pain 8:11:36 83 17 100 35.4 194/111(166) NSR 0 (11) 10(A) , No pain 8:15:34 81 15 99 32.4 181/107(148) NSR 0 (11) 10(A) , No pain Medications Time Medication Route Dose Verified Delivered Reason Notes Effe ctiveness by by 7:53:46 Oxygen etCO2 2 Jorge Beckman used for Nasal l/min Blair Draper RN procedure cannula 7:53:55 Lidocaine 2% added 20ml Jorge Patel for local to vial Blair Pinto MD anesthetic field 7:54:01 Heparin Flush added 2 Jorgeruben Patel used for Bag to bags Blair Pinto MD procedure (1000units/500ml field NS) 7:54:11 0.9% NaCl I.V. 150 Jorge Beckman Per ml/hr Blair Draper RN physician 8:00:45 Versed I.V. 2 mg Jorge Beckman for Blair Draper RN sedation 8:00:51 Fentanyl I.V. 100 Jorge Beckman for mcg Blair Draper RN sedation 8:05:11 Versed I.V. 1 mg Jorge Beckman for Blair Draper RN sedation 8:05:15 Fentanyl I.V. 50 Jorge Beckman for mcg Blair Draper RN sedation 8:07:29 Lopressor I.V. 5 mg Jorge Beckman Per Blair Draper RN physician Procedure Log Time Note 7:25:18 Informed consent obtained and on chart 7:25:42 Diagnostic Cath Status : Emergency 7:26:28 Indication : Chest pain 7:26:41 Procedure Status Urgent Heart Cath (IP). 7:26:46 Rk Draper RN sent for patient. Start room use. 7:26:49 Time tracking: Regular hours (M-F 7:00 - 5:00) 7:26:58 Plan of Care:Hemodynamics will remain stable., Cardiac rhythm will remain stable., Comfort level will be maintained., Respiratory function will remain adequate., Patient/ family verbilizes understanding of procedure., Procedure tolerated without complication., Recovers from procedure without complications.. 7:27:31 Patient allergic to Other allergyCODEINE 7:30:19 Arrival Date: 08/12/2019 12:00:00 AM 7:30:40 Insurance Payor : Medicare 7:30:45 Admit Source: Emergency department 7:30:50 Patient Height : 70.87 inches 7:30:57 Patient Weight : 317.47 lbs 7:32:03 Lab Result : BUN 30 mg/dl 7:32:03 Lab Result : eGFR AM 36 ml/min 7:32:03 Lab Result : Hemoglobin 12.7 g/dl 7:32:03 Lab Result : Troponin l 0.02 ng/ml 7:32:03 Lab Result : Creatinine 2.4 mg/dl 7:32:03 Lab Result : CK-MB 2 ng/ml 7:35:13 Risk of Mortality: 0.1 7:35:17 Risk of blood transfusion: 2.6 7:35:23 Risk of CASSANDRA: 21.7 7:35:40 ACC Patient presents with Stable Angina CCS Anginal Class 4--Inability to carry out any physical activity w/o angina. Angina may occur at rest. 7:36:36 Patient diabetic? Yes. 7:36:38 If diabetic: On Metformin? No 7:36:58 Airway obstruction? Yes ASTHMA 7:38:39 Patient received from Med II to CCL 1 Alert and oriented. Tansferred to table in Supine position. 7:44:22 Warm blankets applied, and jimi hugger turned on for patient comfort. 7:44:23 Correct patient and procedure confirmed by team. 7:44:24 ECG and BP/O2 sat monitors applied to patient. 7:44:26 Vital chart was started 7:44:49 Rhythm: sinus rhythm 7:44:51 Full Disclosure recording started 7:44:57 H&P Date Dictated: 08/12/2019 New H&P dictated by physician.. 7:44:59 Pre-procedure instructions explained to patient. 7:44:59 Pre-op teaching completed and patient verbalized understanding. 7:45:03 Family in patients room. 7:45:06 Patient NPO since Midnight. 7:45:11 Is the patient allergic to Iodine/contrast media? No. 7:45:12 Is patient on blood thinner?Yes 7:45:27 1200 MG PLAVIX YESTERDAY 7:45:37 Previous problem with sedation/anesthesia? No ? 7:45:39 Snore? Yes 7:45:41 Sleep apnea? No 7:45:41 Deviated septum? No 7:45:42 Opens mouth fully? Yes 7:45:43 Sticks out tongue? Yes 7:45:46 Dentures? No ? 7:45:48 Pre procedure: right dorsailis pedis pulse 1+ Palpable, but thready & weak; easily obliterated 7:45:54 Patient pain scale 0/10 ?. 7:45:58 IV patent on arrival in left antecubital with 0.9% NaCl at KVO. 7:46:01 Lab results completed and on chart. 7:46:18 Stress Test: no; N/A ? 7:46:23 Right groin area was prepped with chlora-prep and draped in sterile fashion 7:46:28 Alarms reviewed by R. N. 7:46:28 Sharps counted by scrub and verified by R.N. 7:47:32 Use device set Femoral Dx 7:47:33 ACIST Syringe (07187) opened to sterile field. 7:47:33 Bag Decanter (2002S) opened to sterile field. 7:47:34 ACIST Hand Control (87972) opened to sterile field. 7:47:35 ACIST Manifold (68679) opened to sterile field. 7:47:38 Tegaderm 4 x 4 (1626W) opened to sterile field. 7:47:49 Medline Cath Pack ([id number]) opened to sterile field. 7:47:49 DIAGNOSTIC Multipack 5Fr catheter set (GQ6657) opened to sterile field. 7:47:50 SHEATH 5FR Magnet (HPC044) opened to sterile field. 7:47:51 EMERALD Guide Wire (734-876) opened to sterile field. 7:50:46 IV Extension Set opened to sterile field. 7:53:46 Oxygen 2 l/min etCO2 Nasal cannula was administered by Rk Draper RN; used for procedure; Verbal order read back and verified. 7:53:55 Lidocaine 2% 20ml vial added to field was administered by Jorge Pinto MD; for local anesthetic; Verbal order read back and verified. 7:54:01 Heparin Flush Bag (1000units/500ml NS) 2 bags added to field was administered by Jorge Pinto MD; used for procedure; Verbal order read back and verified. 7:54:11 0.9% NaCl 150 ml/hr I.V. was administered by Rk Draper RN; Per physician; Verbal order read back and verified. 7:59:37 --------ALL STOP TIME OUT------ 7:59:37 Final Timeout: patient, procedure, and site verified with staff and physician. All members of the team are in agreement. 7:59:39 Right groin site verified by team. 7:59:42 Fire Safety Assessment: A--An alcohol-based skin anteseptic being used preoperatively., C--Open oxygen or nitrous oxide is being used., D--An ESU, laser, or fiber-optic light is being used. 7:59:46 Physical assessment completed. ASA score P 2 - A patient with mild systemic disease as per Jorge Pinto MD. 7:59:51 3b) 30-44 Moderately reduced kidney function. 8:00:36 Maximum allowable contrast dose (3.7 X eGFR X 0.75)100 ml. 8:00:39 Sedation plan: IV Moderate Sedation Medication:Versed, Fentanyl 8:00:45 Versed 2 mg I.V. was administered by Rk Draper RN; for sedation; Verbal order read back and verified. 8:00:51 Fentanyl 100 mcg I.V. was administered by Rk Draper RN; for sedation; Verbal order read back and verified. 8:01:39 Zero performed for pressure channel P1 8:02:28 Procedure started. 8:02:33 Local anesthetic to right femoral artery with Lidocaine 2% by Jorge Pinto MD.INITIAL ACCESS ONLY 8:03:29 A 5 Fr sheath was inserted into the Right Femoral artery 8:04:35 A MULTIPACK Pigtail 5 Fr catheter was advanced over the wire and used for Procedure. 8:04:38 LV gram done using DIANA 8:04:44 Injector settings: Ml/sec: 10, Volume: 20, 8:05:05 EF : 50 % 8:05:07 Catheter removed. 8:05:11 Versed 1 mg I.V. was administered by Rk Draper RN; for sedation; Verbal order read back and verified. 8:05:15 Fentanyl 50 mcg I.V. was administered by Rk Draper RN; for sedation; Verbal order read back and verified. 8:05:28 A MULTIPACK JL 4.0 5Fr catheter was advanced over the wire and used for Procedure. 8:06:05 LCA angiography performed. 8:06:31 Catheter removed. 8:06:36 A MULTIPACK 3DRC 5Fr catheter was advanced over the wire and used for Procedure. 8:07:29 Lopressor 5 mg I.V. was administered by Rk Draper RN; Per physician; Verbal order read back and verified. 8:07:38 ROMERO to LAD angiography performed. 8:08:06 RCA angiography performed. 8:08:08 Catheter removed. 8:08:20 A DIAGNOSTIC AR2 MOD 5 Fr catheter ([id number]) was advanced over the wire and used for Procedure. 8:09:15 SVG to Circ angiography performed. 8:09:49 SVG to RCA angiography performed. 8:09:50 Catheter removed. 8:10:02 EXOSEAL 5Fr (EX500) opened to sterile field. 8:10:12 Sheath removed intact; hemostasis achieved with Exoseal to the Right Femoral artery. 8:10:17 Procedure ended.(Physican Out) 8:10:47 Fluoroscopy time 02.50 minutes. 8:10:51 Fluoroscopy dose: 769 mGy 8:10:51 Flurop Dose total: 769 8:10:55 Dose Area Product 48194 mGy/cm. 8:11:09 Contrast amount:Isovue 300 52ml. 8:11:13 Maximum allowable dose exceeded? No. 8:11:14 Sharps counted by scrub and verified by R.N. 8:11:18 Post-op/insertion site Right Femoral artery dressed using a 4 x 4 and Tegaderm. 8:11:21 Post-procedure physical assessment completed. ASA score P 2 - A patient with mild systemic disease as per Jorge Pinto MD. 8:11:39 Post procedure rhythm: unchanged. 8:11:42 Estimated blood loss: 5 ml 8:11:44 Post procedure instruction explained to patient.Patient verbalizes understanding. 8:11:44 Patient needs reinforcement of post procedure teaching. 8:12:23 Procedure type changed to Cath procedure, Diagnostic procedure, LHC, LHC w/Coronaries w/Grafts 8:12:44 Procedure and supply charges have been captured, reviewed, submitted and are correct. 8:12:47 Procedure Complication : No complications 8:12:49 Vital chart was stopped 8:12:51 [facility] Findings: mild to moderate CAD (<70%) 8:12:53 Operative report dictated upon procedure completion. 8:12:53 See physician's report for complete and final results. 8:12:55 Report given to [facility]. 8:12:57 Patient transfered to [facility] with Bed. 8:12:58 Procedure ended. 8:12:58 Full Disclosure recording stopped 8:13:03 End room use (Document Last) 8:15:05 End room use (Document Last) 8:15:28 End room use (Document Last) Device Usage Item Name Manufacture Quantity Catalog Hospital Part Current Minimal L ot# / Number Charge Number Stock Stock Serial# Code ACIST Acist 1 41309 934411 914891 287448 20 Syringe Medical (61672) Systems Inc Bag Microtek 1 2001S 816350 89166 463125 5 Decanter Medical Inc. (2001S) ACIST Hand Acist 1 54658 179079 117144 121335 5 Control Medical (23517) Systems Inc ACIST Acist 1 00431 571477 492017 750243 5 Manifold Medical (27303) Systems Inc Tegaderm 4 3M 1 1626W 930305 811843 705041 5 x 4 (1626W) Medline Medline 1 [id number] 334409 07708 341161 5 Cath Pack (FOHG16387) DIAGNOSTIC Cardinal 1 PN4212 780938 46321 220167 30 Multipack Health 5Fr catheter set (YB4802) SHEATH 5FR Terumo 1 LMT056 558074 394738 046440 5 Magnet (IHT043) EMERALD Cardinal 1 502-455 935089 240381 176663 5 Guide Wire Health (502-698) IV Hospira 1 38086-70 423839 38226 593555 5 Extension Set MULTIPACK Cardinal 1 337886 5 Pigtail 5 Health Fr catheter MULTIPACK Cardinal 1 202442 5 JL 4.0 5Fr Health catheter MULTIPACK Cardinal 1 198239 5 3DRC 5Fr Health catheter DIAGNOSTIC Cardinal 1 [id number] 155724 030309 631884 20 AR2 MOD 5 Health Fr catheter (259241D) EXOSEAL 5Fr Cardinal 1 EX500 925189 987958 714145 10 (EX500) Health Signature Audit [place] Stage Time Signature Unsigned Intra-Procedure 08/12/2019 iMladis Chakraborty 8:15:05 AM RT(R) Intra-Procedure 08/12/2019 Rk Draper RN 8:15:28 AM Intra-Procedure 08/12/2019 Jorge Pinto 8:15:59 [id number] [place] [address]
[~2019-08-11 06:07] MED LIST changes: +HUMULIN 70100 UNIT/1 SC; -HUMULIN 70100 UNIT/1 SQ
[2019-08-11] MEDS ORDERED: TRULICITY0.75 MG/0. SC (06:17)
[2019-08-11 06:33] LABS: BASOPHILS 0.4 % (0-2); EOSINOPHILS 14.1 % (0-7); HEMATOCRIT 39.1 % (42.0-54.0); HEMOGLOBIN 12.7 g/dL (13.5-17.5); IMMATURE GRANULOCYTES 0.2 % (0-5); LYMPHOCYTES 33.7 % (15-50); MCH 27.7 pg (26.0-34.0); MCHC 32.5 g/dL (31.0-37.0); MCV 85.4 fL (80.0-100.0); MEAN PLATELET VOLUME 9.7 fL (7.4-10.4); MONOCYTES 10.2 % (2-11); NEUTROPHILS 41.4 % (40-80); PLATELET COUNT 219 10x3/uL (130-400); RBC 4.58 10x6/uL (4.20-6.10); RDW 14.1 % (11.5-14.5)
[2019-08-11 06:36] LABS: INR 0.96 (0.85-1.17); PROTIME 12.3 SECONDS (11.6-15.0)
[2019-08-11 06:48] LABS: CALC OSMOLALITY 285 mosm/kg (275-300); CALCIUM 8.7 mg/dL (8.5-10.1); CARBON DIOXIDE 23.5 mmol/L (21.0-32.0); CHLORIDE - SERUM 104 mmol/L (98-107); CREATININE - SERUM 2.4 mg/dL (0.6-1.3); GLUCOSE 113 mg/dL (74-106); POTASSIUM - SERUM 3.8 mmol/L (3.5-5.1); SODIUM 140 mmol/L (136-145); UREA NITROGEN 30 mg/dL (7-18); eGFR NON AFRICAN AMERICAN 30 mL/min (90-120)
[2019-08-11 07:07] LABS: ALBUMIN 3.6 g/dL (3.4-5.0); ALKALINE PHOSPHATASE 67 U/L (46-116); ALT (SGPT) 23 U/L (10-68); BILIRUBIN - TOTAL 0.43 mg/dL (0.2-1.3); CREATINE KINASE 261 UL (21-232); MAGNESIUM - SERUM 1.7 mg/dL (1.8-2.4)
--- NOTE | 2019-08-11 08:18 | NUR ---
PT REFUSED NITRO PATCH
--- NOTE | 2019-08-11 09:56 | NUR ---
TRANSFER FROM ER BY W/C. KAILASHINTED TO ROOM. CALL LIGHT IN REACH. WILL CONT. PLAN OF CARE.
--- NOTE | 2019-08-11 10:04 | NUR ---
CONSENTS FOR PROCEDURE OBTAINED AND GIVEN TO DISPOSAL OPERATOR [facility]
[2019-08-11 10:12] VITALS: BP 154/88; BMI 44.1
[2019-08-11 12:10] VITALS: Ht 180.3 cm; Wt 143.6 kg
--- NOTE | 2019-08-11 14:08 | HP ---
PATIENT: SHARATH BAKER MEDICAL RECORD: [id number] ACCOUNT: [id number] LOCATION:[address] : 62 ADMISSION DATE: 08/11/19 PCP: JESSICA MYERS MD HISTORY AND PHYSICAL EXAMINATION ADMITTING DIAGNOSES: 1. Unstable angina. 2. Coronary artery disease. 3. Previous cardiac stenting. 4. Previous bypass surgery. 5. Hypertension. 6. Hyperlipidemia. 7. Shortness of breath, dyspnea on exertion. HISTORY OF PRESENT ILLNESS: Mr. Baker presents with chest discomfort that awoke him. He had very severe chest discomfort just like that of his previous angina. It was a pressure, heavy sensation, associated with diaphoresis, shortness of breath. He has noted shortness of breath over the past week as this has been worsening as well; however, this is the first time he has had chest pain. He is having a recurrence of the chest pain currently while I am just talking to him. His chest pain now is approximately a 4/10. His EKG is with a left bundle-branch block. Initial troponin was within normal limits. PHYSICAL EXAMINATION: CONSTITUTIONAL/GENERAL APPEARANCE: Well nourished, well developed, appears stated age. EYES: Lids and conjunctivae noninjected. No discharge. No pallor. ENT: Lips within normal limit. No cyanosis. No pallor. NECK: Carotid arteries, bilateral normal upstroke. No bruits. No thrills. No jugular venous pressure or distention. CERVICAL LYMPH NODES: Nontender. Nonenlarged. THYROID: Not enlarged. No nodules. CARDIOVASCULAR: Precordial exam, nondisplaced. No heaves or pericardial thrills. Rate and rhythm, regular. Heart sounds, normal S1, normal S2. No S3, no gallop, no rub. Systolic murmur, not heard. Diastolic murmur, not heard. RESPIRATORY: Respiratory effort, unlabored. Normal curvature. No thoracic deformity. No chest wall tenderness. Percussion, resonant. Auscultation, clear. No wheezes, no rales, no rhonchi. ABDOMEN: Soft, nondistended, nontender. No abdominal pain, no vomiting and normal appetite. MUSCULOSKELETAL: No joint tenderness, normal gait, normal tone. SKIN: Warm and dry. OVERALL IMPRESSION: Unstable angina. The patient with hypertension, hyperlipidemia, and diabetes, past history of coronary artery disease with bypass surgery. His current medical therapy includes beta emy and calcium channel emy. We will add a nitrate to his medical regimen, hydrate him if he continues to have chest pain. Plan for coronary angiography. TRANSINT:[id number] Voice Confirmation ID: [id number] DOCUMENT ID: [id number] HISTORY AND PHYSICAL [id number] SHARATH BAKER JEFFREY MD at 1408 CC: [id number] DICTATION DATE: 08/11/19 1209 HYDRO PLANT OPERATOR: 08/11/19 1228 ADM IN [place] [id number] [place] [id number]
[2019-08-11 15:53] VITALS: BP 149/87
--- NOTE | 2019-08-11 18:45 | NUR ---
RECEIVED BEDSIDE REPORT. PATIENT IS ALERT AND ORIENTED, RESTING COMFORTABLY IN BED. RESPIRATIONS ARE EVEN AND UNLABORED. IV INFUSING NS AT 150 ML/HR. NO S/S OF DISTRESS. NO C/O PAIN. CALL LIGHT WITHIN REACH. WILL CPOC.
[2019-08-11 20:00] VITALS: BP 123/54
[2019-08-12] VITALS: BP 142/75
[2019-08-12 04:00] VITALS: BP 151/83
--- NOTE | 2019-08-12 07:39 | NUR ---
PRE-OPS GIVEN. TO SENIOR ACCOUNT REPRESENTATIVE BY BED.
[2019-08-12 08:19] LABS: CALCIUM 7.9 mg/dL (8.5-10.1); CARBON DIOXIDE 23.8 mmol/L (21.0-32.0); CREATININE - SERUM 2.3 mg/dL (0.6-1.3); POTASSIUM - SERUM 3.8 mmol/L (3.5-5.1)
--- NOTE | 2019-08-12 08:30 | NUR ---
BACK FROM HEAVY EQUIPMENT SUPERVISOR. VS WNL. RIGHT GROIN STABLE WITHOUT BLEEDING OR HEMATOMA NOTED. WILL MONITOR.
[2019-08-12] MEDS ORDERED: PROCARDIA XL30 MG PO (09:26)
--- NOTE | 2019-08-12 10:00 | NUR ---
CONSENTS SIGNED FOR [facility]. WILL CONT. PLAN OF CARE.
--- NOTE | 2019-08-12 10:15 | NUR ---
BED REST UP. GROIN STABLE.
--- NOTE | 2019-08-12 10:25 | NUR ---
BHUMIKA EMANUEL RN TO TELL ME THAT DR NOVAK WANTS TO INCREASE PROCARDIA FROM 60 MG TO 90 MG. I CALLED ROBERT PHARMACIST AT [facility] AND TOLD HER.
--- NOTE | 2019-08-12 10:30 | NUR ---
PER BHUMIKA EMANUEL RN I NEED TO CALL SOME CARDURA 2 MG BID BID #60. I SPOKE WITH ROBERT, PHARMACIST.
[2019-08-12] MEDS ORDERED: CARDURA2 MG PO (10:32)
--- NOTE | 2019-08-12 10:51 | NUR ---
IV AND TELMETRY DCD. DC PLANS GIVEN. IMDERSTANDING VOICED. ESCORTED TO CAR BY W/C.
--- NOTE | 2019-08-12 12:49 | OP ---
PATIENT NAME: SHARATH STONE MEDICAL RECORD: [id number] :62 LOCATION:D.M2 D.2117 ADMISSION DATE:08/11/19 SURGEON: REYNALDO NOVAK MD DATE OF OPERATION: 08/12/2019 PROCEDURES: 1. Left heart catheterization. 2. Selective coronary angiography. 3. Left ventriculogram. 4. Vein graft angiography. 5. ROMERO angiography. INDICATION: Angina and coronary artery disease. PROCEDURE IN DETAIL: After informed consent was obtained and after a detailed description of risks, benefits as well as alternative therapies, the patient elected to proceed with angiogram and heart catheterization. The right femoral area was prepped and draped in normal sterile fashion. Right femoral artery was cannulated via modified Seldinger technique with placement of 6-Malian sheath. All catheters exchanged through this sheath. FINDINGS: The left ventriculogram was performed in standard 30-degree DIANA view, reveals good cardiac wall motion, ejection fraction 50%. SELECTIVE CORONARY ANGIOGRAPHY: 1. Left main is with no significant angiographic disease. 2. Left anterior descending is totally occluded in the mid vessel. 3. Left circumflex has a total occlusion of the first obtuse marginal. 4. Right coronary artery is totally occluded mid vessel. 5. ROMERO to the LAD is widely patent. Distal LAD is widely patent. 6. Vein graft to the left circumflex first obtuse marginal is patent. The distal first obtuse marginal is patent. 7. Vein graft to the RCA is patent. Distal RCA is patent. OVERALL IMPRESSION: Wide patency of all grafts. No new disease elsewise. Continue medical management of the coronary artery disease and cardiac risk factors. TRANSINT:[id number] Voice Confirmation ID: [id number] DOCUMENT ID: [id number] REYNALDO NOVAK MD at 1249 CC: [id number] DICTATION DATE: 08/12/19 0815 CERTIFIED APPLIANCE SERVICE TECHNICIAN: 08/12/19 0953 DIS IN 08/12/19 [id number] [place] [address]
--- NOTE | 2019-08-13 08:05 | MORECARE ---
CASE MANAGEMENT DISCHARGE SUMMARY PATIENT: SHARATH STONE UNIT: [id number] ADM DATE: 08/11/19 AGE: 59 : 62 SEX: M ROOM/BED: D.2117 AUTHOR: ABDOULAYE BRIONES PHYSICIAN: REFERRING PHYSICIAN: REYNALDO NOVAK MD DATE OF SERVICE: 08/13/19 Discharge Plan Patient Name: SHARATH STONE [facility] [facility] 1960 Planned Disposition: Home Anticipated Discharge Date: 08/12/19 Discharge Date: 08/12/2019 Expected LOS: 1 Initial Reviewer: [email or web address] Initial Review Date: 08/13/2019 Generated: 08/13/19 9:05 am Coverage Notice Reviewer: [email or web address] Kkie Shahid Notice Issued Date-Time: 08/12/2019 7:45 Notice Type: Medicare Outpatient Observation Notice Notice Delivered To: Family Member Relationship to Patient: Spouse Engineering Manager Name: ESA STONE Delivery Method: HAND - Hand Delivered Jordyn Days: Prior Verbal Notification: Recipient Understood Notice: Yes Recipient Signature: Yes Med Rec Note Co-signed by Attending: Coverage Notice Comment: Patient Name: SHARATH STONE Page [phone] at 0805 All edits/amendments must be made on the electronic document DICTATION DATE: 08/13/19 08 HOUSE WORKER GENERAL: GWYN 08/13/19804 RPT#: [id number] DC DATE:08/12/19 STATUS: DIS IN [id number] [place] [address] END OF REPORT
--- NOTE | 2019-08-18 10:41 | EC ---
PATIENT:SHARATH STONE DATE OF SERVICE: 08/11/19 SEX: M MEDICAL RECORD: [id number] DATE OF : 62 LOCATION:D.M2 D.211 AGE OF PATIENT: 59 ADMISSION DATE: 08/11/19 REFERRING PHYSICIAN: INTERPRETING PHYSICIAN: REYNALDO PINTO MD ECHOCARDIOGRAM REPORT ECHO CHARGES 4 ECHO COMPLETE Date: 08/11/19 CLINICAL DIAGNOSIS: SOB ECHOCARDIOGRAPHIC MEASUREMENTS (adult normal given) AC root (d.<3.7cm) 3.4 cm LV Septum d (<1.2 cm> 1.2 cm Valve Excursion 1.8 cm LV Septum (systole) 1.3 cm Left Atria (s.<4.0cm> 3.8 cm LVPW d(<1.2cm) 1.2 cm RV (d.<2.3cm) 3.1 cm LVPW (sytole) 1.3 cm LV diastole(<5.6CM) 7.5 cm MV E-F(>70mm/sec) cm LV systole 6.7 cm LVOT Diameter 2.1 cm MV exc.(>10mm) cm Est.ejection fraction (50-75%) % DOPPLER: LVIT cm/sec A 97 cm/sec E 53 cm/sec LA cm/sec RVSP 21.4 mmHg LVOT 92 cm/sec AOP1/2T m/s Asc. Ao 109 cm/sec RVOT 64 cm/sec RA cm/sec PA 77 cm/sec AV Gradient Peak 4.8 mmHg AV Mean 3.0 mmHg AV Area 2.7 cm MV Gradient Peak 3.8 mmHg MV Mean 1.7 mmHg MV Area cm COMMENTS: Central Office Repairer: Conrado [facility] Clerk Secretary: 1 Dr. Pinto TAPE# PACS Pericardial Effusion N DATE OF SERVICE: FINDINGS: 1. Left ventricular chamber size is mildly dilated. Left ventricular systolic function is mildly depressed at 40%. 2. Left atrium, right atrium, and right ventricular chamber sizes are within normal limits. 3. Valvular structures have normal structure and motion. 4. Doppler interrogation reveals trace mitral regurgitation, mild tricuspid regurgitation, no other valvular insufficiency or stenosis. Pulmonary systolic ECHOCARDIOGRAM REPORT [id number] SHARATH STONE pressure is estimated at 21 mmHg. 5. No evidence of pericardial effusion or left ventricular thrombus. TRANSINT:[id number] Voice Confirmation ID: [id number] DOCUMENT ID: [id number] REYNALDO IPNTO MD at 1041 CC: [id number] DICTATION DATE: 08/16/19 1631 STATION REPAIRER: 08/16/19 190 DIS IN 08/12/19 [facility] [id number]
--- NOTE | 2019-08-18 10:41 | DS ---
PATIENT:SHARATH BAKER :62 MEDICAL RECORD: [id number] DISCHARGE SUMMARY ADMISSION DATE: 08/11/19 DISCHARGE DATE: 08/12/19 DISCHARGE DIAGNOSES: 1. Angina. 2. Coronary artery disease. 3. Status post coronary artery bypass graft surgery. 4. Hypertension. 5. Hyperlipidemia. HOSPITAL COURSE: Mr. Baker presents with anginal symptomatology; however, cardiac catheterization revealed wide patency of all his grafts. He was discharged home with no change in his medications. If he has any further episodes of chest discomfort, we will proceed with long-acting nitrates in the form of Imdur or nitropatch. TRANSINT:[id number] Voice Confirmation ID: [id number] DOCUMENT ID: [id number] REYNALDO NOVAK MD at 1041 CC: [id number] DICTATION DATE: 08/12/19813 TEXTILE CONVERSION MANAGER: 08/13/19 0025 DIS IN 08/12/19 [id number] [place] [address]
== END 2019-08-12 10:56 | disposition home or self-care (01) ==
LOC: D.ER 06:07 → D.CATH 06:07 → EDSTATUS 08:08 → D.M2 09:44 → OBSVTIME 09:44 → D.M2 09:44
PROVIDERS: Family Medicine; ADMIT Internal Medicine Interventional Cardiology; ATTEND Internal Medicine Interventional Cardiology
DX: I25.110 Atherosclerotic heart disease of native coronary artery with unstable angina pectoris (principal); I10 Essential (primary) hypertension; E78.5 Hyperlipidemia, unspecified; R06.02 Shortness of breath; Z95.5 Presence of coronary angioplasty implant and graft

== ENCOUNTER 2021-01-08 07:41 | Day surgery (SDC) | payer OTHER ==
[~2021-01-08 07:41] MED LIST changes: +CARDURA2 MG PO; +PROCARDIA XL30 MG PO; +TAMIFLU75 MG PO; +TRULICITY0.75 MG/0. SC
[2021-01-08] MEDS ORDERED: GABAPENTIN300 MG PO (07:49)
[2021-01-08] MEDS ORDERED: LIPITOR20 MG PO (07:50)
[2021-01-08] MEDS ORDERED: COZAAR100 MG PO (07:51)
[2021-01-08] MEDS ORDERED: ADALAT CC90 MG PO (07:51)
[2021-01-08 08:54] LABS: ANION GAP 11.8 mmol/L (8-16); CALCIUM 8.6 mg/dL (8.5-10.1); CARBON DIOXIDE 25.9 mmol/L (21.0-32.0); CREATININE - SERUM 2.8 mg/dL (0.6-1.3); LDL-HDL RATIO 1.7 ratio (1.5-3.5); POTASSIUM - SERUM 3.7 mmol/L (3.5-5.1)
[2021-01-08 09:03] LABS: BASOPHILS 0.2 % (0-2); EOSINOPHILS 5.3 % (0-7); HEMATOCRIT 39.3 % (42.0-54.0); HEMOGLOBIN 12.9 g/dL (13.5-17.5); IMMATURE GRANULOCYTES 0.2 % (0-5); LYMPHOCYTE ABS# 1.28 10x3/uL (1.32-3.57); LYMPHOCYTES 29.8 % (15-50); MCH 27.3 pg (26.0-34.0); MCHC 32.8 g/dL (31.0-37.0); MCV 83.1 fL (80.0-100.0); MEAN PLATELET VOLUME 10.3 fL (7.4-10.4); MONOCYTES 12.3 % (2-11); NEUTROPHIL ABS# 2.24 10x3/uL (1.78-5.38); NEUTROPHILS 52.2 % (40-80); PLATELET COUNT 192 10x3/uL (130-400); RBC 4.73 10x6/uL (4.20-6.10); RDW 14.4 % (11.5-14.5); WBC 4.3 10x3/uL (4.8-10.8)
[2021-01-08] MEDS ORDERED: PROTONIX40 MG PO (11:15)
== END 2021-01-08 12:15 | disposition home or self-care (01) ==
LOC: D.CATH 07:41
PROVIDERS: Internal Medicine Interventional Cardiology
DX: I25.119 Atherosclerotic heart disease of native coronary artery with unspecified angina pectoris (principal); I10 Essential (primary) hypertension; E78.5 Hyperlipidemia, unspecified; E11.9 Type 2 diabetes mellitus without complications; I73.9 Peripheral vascular disease, unspecified; J45.909 Unspecified asthma, uncomplicated